=== PATIENT | male | born 1955 | race Caucasian/White ===

== ENCOUNTER → 2016-09-02 | Outpatient (CLI) | payer MEDICARE, MEDICAID ==
[~2016-09-02] MED LIST: ADVAIR; ALBUTEROL; AMIT25TA9 PO; AMOX500C2 PO; ASP81TEC PO; ASPI-586 PO; CATHETER FLUSH 10 ML SYR IV PRN; CRV6.25T PO; CYCL10TA9 PO; DOXA2TAB2 PO; FLUO20CA25 PO; HYDR-3454 PO; HYDR-3874 PO; HYDR1TAB PO; IOHEXOL 350 MG/ML 100 ML (OMNIPAQUE 350) VIAL IV ONE; LISI40TA PO; NAPR500T PO; NS 100 ML (IVPB) BAG IV ONE; OXYGEN; PRAVASTATIN; SERT50TA2 PO; SIMV5TAB6 PO; SPIRIVA; TOPROL; VARE1TAB19 PO; [UNRECOGNIZED DRUG - OTHER]
[2016-09-02 14:15] LABS: BLOOD UREA NITROGEN 10 MG/DL (7-18); BUN/CREATININE RATIO 11; GFR ESTIMATED > 60
--- NOTE | 2016-09-02 17:08 | Diagnostic Imaging Report ---
EXAMINATION: CT scan of the head and internal auditory canals performed without and with intravenous contrast. 18 mL of Omnipaque 350 is administered intravenously. INDICATION: Right ear drainage for one year. FINDINGS: CT IAC: There is soft tissue thickening and bony erosion seen along the posterior aspect of the external auditory canal. The erosion involves the anterior aspect of the temporal bone and some of the adjacent mastoid air cells are opacified. No obvious enhancement on post contrast images is seen. The soft tissue thickening in the external auditory canal on the right side extends to the region of the tympanic membrane but does not extend into the middle ear cavity. No erosions in the scutum or the ossicles. The left mastoid air cells are clear. The middle ear cavity and tympanic membrane as well as the ossicles appear unremarkable. The inner ear structures appear symmetric and internal auditory canals appear symmetric bilaterally. CT BRAIN: There is no intracranial hemorrhage demonstrated on the unenhanced phase. The brain parenchyma demonstrates preserved larose and white matter differentiation. No hydrocephalus. No extra-axial fluid collection seen. No enhancing brain mass is identified. The calvarium appears grossly unremarkable. There is mucosal thickening in the right maxillary sinus and mucosal thickening along the middle and inferior turbinates. IMPRESSION: There is soft tissue thickening in the external auditory canal with erosion of the adjacent anterior aspect of the right temporal bone and partially opacified mastoid air cells. No definite enhancement. 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 Infection or neoplasm is less likely. Tissue diagnosis is recommended. Dictated by: Dictated on workstation # [id number]
== END ==
LOC: RAD 13:33
PROVIDERS: ATTEND Otolaryngology Otolaryngology/Facial Plastic Surgery
DX: H92.11 Otorrhea, right ear (principal); H93.8X1 Other specified disorders of right ear
CPT/HCPCS: 36415; 70482; 82565; 84520

== ENCOUNTER 2017-03-22 21:02 | Emergency (ER) | payer MEDICARE, MEDICAID ==
[~2017-03-22] VITALS: Ht 188 cm; Wt 90.7 kg
[~2017-03-22 21:02] MED LIST changes: -CATHETER FLUSH 10 ML SYR IV PRN; -IOHEXOL 350 MG/ML 100 ML (OMNIPAQUE 350) VIAL IV ONE; -NS 100 ML (IVPB) BAG IV ONE
[2017-03-22] MEDS ORDERED: methylPREDNISolone 125 MG (Solu-MEDROL) VIAL IVP ONE (21:15)
--- NOTE | 2017-03-22 21:28 | ED Respiratory ---
General Chief Complaint: Respiratory Problems Stated Complaint: SOB Nursing Triage Note: C/O progressive soa x 2 weeks. Feels much improved after albuterol tx by EMS. Denies fever/chills. Creamy productive cough reported. Source: patient (LIMITED HISTORIAN), EMS History of Present Illness Time seen by provider: 21:04 Initial Comments PT ARRIVES VIA EMS FROM HOME C/O SHORTNESS OF BREATH AND COUGH FOR "A COUPLE OF WEEKS" PT HAS COPD AND CONTINUES TO SMOKE 1 PPD PT HAS ALBUTEROL INHALER -- LAST USED PT HAS BEEN PRESCRIBED ANORO INHALATION POWDER, BUT QUIT USING IT " A COUPLE OF WEEKS AGO" DUE TO IT CAUSING HIM TO COUGH MORE NO FEVER COUGH IS PRODUCTIVE OF COLORED CREAM-COLORED SPUTUM NO CHEST PAIN NO SWELLING IN LEGS/ FEET OR PAIN IN CALVES NO KNOWN SICK CONTACTS PT WAS SEEN AT [facility] " A COUPLE OF WEEKS AGO" FOR THIS PROBLEM AND WAS PRESCRIBED UNKNOWN MEDICATIONS--PER MED RECONCILIATION--DOXYCYCLINE PRESCRIBED ON 02/26/17 AND PT REPORTS MUCINEX ? WELL. PT STATES NO IMPROVEMENT IN SYMPTOMS EMS HAS GIVEN ALBUTEROL NEB TREATMENT EN ROUTE AND PT STATES HE FEELS MUCH BETTER. O2 SAT 94% ON ROOM AIR AT SCENE FOR EMS PT HAS HAD "5 SHOTS" OF LIQUOR TODAY PCP: [facility] Allergies and Home Medications Allergies Coded Allergies: No Known Drug Allergies (Unverified , 08/09/08) Home Medications Amitriptyline HCl 25 Mg Tablet, (Reported) Carvedilol 12.5 Mg Tablet, (Reported) Clonidine HCl 0.1 Mg Tablet, (Reported) Lisinopril 20 Mg Tablet, (Reported) Montelukast Sodium 10 Mg Tablet, (Reported) Sertraline HCl 100 Mg Tablet, (Reported) Simvastatin 40 Mg Tablet, (Reported) Constitutional: no symptoms reported, No chills, No diaphoresis EENTM: no symptoms reported Respiratory: see HPI, cough, dyspnea on exertion, phlegm, short of breath Cardiovascular: no symptoms reported, No chest pain, No edema, No palpitations , No syncope Gastrointestinal: no symptoms reported Genitourinary: no symptoms reported Musculoskeletal: no symptoms reported Skin: no symptoms reported Psychiatric/Neurological: No Symptoms Reported Hematologic/Lymphatic: No Symptoms Reported Immunological/Allergic: no symptoms reported Past Ilbrsdv-Lsyfds-[place] Hx Patient Social History Alcohol Use: Regular Use (NOW DRINKS "OCCASIONALLY" BUT STATES IN THE PAST HE DRANK 12 PACK TO A CASE OF BEER /DAY PLUS HARD LIQUOR) Recreational Drug Use: No Smoking Status: Current Everyday Smoker (UP TO 1 1/2 PPD) Recent Foreign Travel: No Contact w/Someone Who Travel: No Recent Infectious Disease Expo: No Recent Hopitalizations: Yes Immunizations Up To Date Date of Pneumonia Vaccine: Mar 06, 2014 Date of Influenza Vaccine: Mar 06, 2014 Surgeries History of Surgeries: Yes (CARDIAC CATH-NO INTERVENTION; EXCISION OF SKIN CANCERS FROM EAR; LITHOTRIPSY) Surgeries: Cardiac, Renal Respiratory History of Respiratory Disorde: Yes Respiratory Disorders: COPD Cardiovascular History of Cardiac Disorders: Yes Cardiac Disorders: Coronary Artery Disease, High Cholesterol, Hypertension Neurological History of Neurological Disord: No Reproductive System Hx Reproductive Disorders: No Sexually Transmitted Disease: No Genitourinary History of Genitourinary Disor: Yes Genitourinary Disorders: Benign Prostatic Hyperpl, Kidney Stones Gastrointestinal History of Gastrointestinal Di: No Musculoskeletal History of Musculoskeletal Dis: No Endocrine History of Endocrine Disorders: No HEENT History of HEENT Disorders: No Cancer History of Cancer: Yes (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) Cancer: Skin Did You Recieve Any Treatments: Yes Type of Tx Receive: Surgical Intervention Psychosocial History of Psychiatric Problem: Yes Behavioral Health Disorders: Depression Integumentary History of Skin or Integumenta: No Blood Transfusions History of Blood Disorders: No Family Medical History Significant Family History: No Pertinent Family Hx Physical Exam Vital Signs Vital Sign - Last 12Hours 03/22/17 21:02 Temp 98.7 Pulse 85 Resp 20 B/P (MAP) 142/84 Pulse Ox 95 O2 Delivery Nasal Cannula O2 Flow Rate 2.00 Capillary Refill : Less Than 3 Seconds General Appearance: WD/WN, no apparent distress, other (STRONG ODOR OF ETOH) HEENT: PERRL/EOMI Neck: normal inspection Respiratory: normal breath sounds, no respiratory distress, no accessory muscle use Cardiovascular: normal peripheral pulses, regular rate, rhythm, no edema, no JVD, no murmur Gastrointestinal: normal bowel sounds, non tender Extremities: normal inspection, no pedal edema, no calf tenderness, normal capillary refill Neurologic/Psychiatric: 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, no motor/sensory deficits, alert, normal mood/affect, oriented x 3 Skin: normal color, warm/dry Progress/Results/Core Measures Suspected Sepsis Recent Fever Within 48 Hours: No Infection Criteria Present: Suspected New Infection New/Unexplained Altered Menta: No Sepsis Screen: No Definite Risk Sepsis Diagnosis: SIRS Temperature:98.7 Pulse: 85 Respiratory Rate: 20 Laboratory Tests 03/22/17 21:20: White Blood Count 14.3H Blood Pressure 142 /84 Mean: 103 Laboratory Tests 03/22/17 21:20: Creatinine 0.79, INR Comment 1.0, Platelet Count 398, Total Bilirubin 0.7 Results/Orders Lab Results Laboratory Tests Test 03/22/17 21:20 Range/Units White Blood Count 14.3 H 4.3-11.0 10^3/uL Red Blood Count 5.55 4.35-5.85 10^6/uL Hemoglobin 16.0 13.3-17.7 G/DL Hematocrit 46 40-54 % Mean Corpuscular Volume 83 80-99 FL Mean Corpuscular Hemoglobin 29 25-34 PG Mean Corpuscular Hemoglobin Concent 35 32-36 G/DL Red Cell Distribution Width 14.7 H 10.0-14.5 % Platelet Count 398 130-400 10^3/uL Mean Platelet Volume 9.3 7.4-10.4 FL Neutrophils (%) (Auto) 71 42-75 % Lymphocytes (%) (Auto) 19 12-44 % Monocytes (%) (Auto) 9 0-12 % Eosinophils (%) (Auto) 1 0-10 % Basophils (%) (Auto) 0 0-10 % Neutrophils # (Auto) 10.2 H 1.8-7.8 X 10^3 Lymphocytes # (Auto) 2.7 1.0-4.0 X 10^3 Monocytes # (Auto) 1.4 H 0.0-1.0 X 10^3 Eosinophils # (Auto) 0.1 0.0-0.3 10^3/uL Basophils # (Auto) 0.0 0.0-0.1 10^3/uL Neutrophils % (Manual) 67 % Lymphocytes % (Manual) 26 % Monocytes % (Manual) 5 % Eosinophils % (Manual) 0 % Basophils % (Manual) 1 % Band Neutrophils 1 % Blood Morphology Comment NORMAL Prothrombin Time 13.4 12.2-14.7 SEC INR Comment 1.0 0.8-1.4 Activated Partial Thromboplast Time 23 L 24-35 SEC Sodium Level 135 135-145 MMOL/L Potassium Level 3.7 3.6-5.0 MMOL/L Chloride Level 91 L 98-107 MMOL/L Carbon Dioxide Level 28 21-32 MMOL/L Anion Gap 16 H 5-14 MMOL/L Blood Urea Nitrogen 9 7-18 MG/DL Creatinine 0.79 0.60-1.30 MG/DL Estimat Glomerular Filtration Rate > 60 BUN/Creatinine Ratio 11 Glucose Level 205 H 70-105 MG/DL Calcium Level 9.6 8.5-10.1 MG/DL Magnesium Level 2.1 1.8-2.4 MG/DL Total Bilirubin 0.7 0.1-1.0 MG/DL Aspartate Amino Transf (AST/SGOT) 27 5-34 U/L Alanine Aminotransferase (ALT/SGPT) 26 0-55 U/L Alkaline Phosphatase 106 40-136 U/L Troponin I < 0.30 <0.30 NG/ML B-Type Natriuretic Peptide 17.9 <100.0 PG/ML Total Protein 7.9 6.4-8.2 GM/DL Albumin 4.4 3.2-4.5 GM/DL Micro Results Microbiology 03/22/17 Influenza Types A,B Antigen (MARYANA) - Final, Complete My Orders Orders - PORFIRIO PICKENS DO Saline Lock/Iv-Start (03/22/17 21:13) Ekg Tracing (03/22/17 21:13) O2 (03/22/17 21:13) Monitor-Rhythm Ecg Trace Only (03/22/17 21:13) BNP (03/22/17 21:13) Cbc With Automated Diff (03/22/17 21:13) Comprehensive Metabolic Panel (03/22/17 21:13) Magnesium (03/22/17 21:13) Protime With Inr (03/22/17 21:13) Partial Thromboplastin Time (03/22/17 21:13) Troponin I (03/22/17 21:13) Influenza A And B Antigens (03/22/17 21:13) Chest Pa/Lat (2 View) (03/22/17 21:13) Methylprednisolone Sod Succ (Solu-Medrol (03/22/17 21:15) Manual Differential (03/22/17 21:20) Medications Given in ED Current Medications Medications Dose Ordered Sig/Sandra Route Start Time Stop Time Status Last Admin Dose Admin Methylprednisolone Sodium Succinate 125 mg ONCE ONCE IVP 03/22/17 21:15 03/22/17 21:16 DC 03/22/17 22:00 125 MG Vital Signs/I&O Vital Sign - Last 12Hours 03/22/17 03/22/17 21:02 21:02 Temp 98.7 Pulse 85 Resp 20 B/P (MAP) 142/84 Pulse Ox 95 95 O2 Delivery Nasal Cannula O2 Flow Rate 2.00 2.00 Capillary Refill : Less Than 3 Seconds Blood Pressure Mean: 103 Progress Note : Progress Note UNEVENTFUL ER STAY NO WHEEZING OR DIFFICULTY BREATHING DURING ER STAY O2 SATS REMAINED IN MID TO UPPER 90'S PT ADVISED OF ABNORMAL GLUCOSE LEVEL, AND ABNORMAL FINDING ON CXR, AND EXPLAINED IMPORTANCE OF FOLLOW UP WITH PCP FOR FURTHER EVALUATION OF THESE FINDINGS ECG Initial ECG Impression Time: 21:37 Initial ECG Rate: 88 Initial ECG Rhythm: Normal Sinus Initial ECG Impression: Nonspecific Changes Initial ECG Comparisson: No Previous ECG Available Diagnostic Imaging Comments CXR--NO ACUTE PROCESS, NODULE VS NIPPLE SHADOW ON RIGHT --PER RADIOLOGIST REPORT @ 2220 Reviewed: Reviewed by Me Departure Impression Impression: Primary Impression: COPD EXACERBATION WITH BRONCHITIS Additional Impressions: Smoker Hyperglycemia Abnormality of lung on CXR Disposition: HOME, SELF-CARE Condition: Improved Departure-Patient Inst. Referrals: KRISTINA VILLANUEVA DO (PCP) Primary Care Physician BALDEMAR JC (Family) Primary Care Physician Patient Instructions: Acute Bronchitis, Adult (DC), COPD Including Emphysema ( DC), Hyperglycemia, Adult (DC), Quitting Smoking, Single Pulmonary Nodule, Smoking: Not Just Harmful to Your Lungs and Heart Add. Discharge Instructions: NO SMOKING ROBITUSSIN DM FOR COUGH FOLLOW UP WITH [facility] IN 2-3 DAYS FOR FURTHER CARE--RECHECK FOR THIS PROBLEM, FOLLOW UP ON ABNORMALITY ON CHEST XRAY AND ELEVATED BLOOD GLUCOSE All discharge instructions reviewed with patient and/or family. Voiced understanding. Scripts Benzonatate (Tessalon Perle) 100 Mg Capsule 1-2 TAB PO TID for Cough, #30 CAP Prov: PORFIRIO PICKENS DO 03/22/17 Budesonide (Pulmicort) 1 Mg/2 Ml Ampul.neb 1 MG IH BID, #1 UNIT Prov: PORFIRIO PICKENS DO 03/22/17 Methylprednisolone (Medrol) 4 Mg Tab.ds.pk 4 MG PO UD, #1 PKG Prov: PORFIRIO PICKENS DO 03/22/17 Albuterol Sulfate (Albuterol Sulfate) 2.5 Mg/3 Ml Vial.neb 2.5 MG IH Q4H, #1 EA Prov: PORFIRIO PICKENS DO 03/22/17 Cefdinir (Cefdinir) 300 Mg Capsule 300 MG PO BID for FOR INFECTION, #20 CAP Prov: PORFIRIO PICKENS DO 03/22/17 PORFIRIO PICKENS DO Mar 22, 2017 21:27
[2017-03-22 21:29] LABS: BASOPHILS % (AUTO) 0 % (0-10); EOSINOPHILS # (AUTO) 0.1 10^3/uL (0.0-0.3); EOSINOPHILS % (AUTO) 1 % (0-10); LYMPHOCYTES # (AUTO) 2.7 X 10^3 (1.0-4.0); LYMPHOCYTES % (AUTO) 19 % (12-44); MEAN CORPUSCULAR HEMOGLOBIN 29 PG (25-34); MEAN CORPUSCULAR HGB CONC 35 G/DL (32-36); MEAN CORPUSCULAR VOLUME 83 FL (80-99); MEAN PLATELET VOLUME 9.3 FL (7.4-10.4); MONOCYTES # (AUTO) 1.4 X 10^3 (0.0-1.0); MONOCYTES % (AUTO) 9 % (0-12); NEUTROPHILS # (AUTO) 10.2 X 10^3 (1.8-7.8); NEUTROPHILS % (AUTO) 71 % (42-75); PLATELET COUNT 398 10^3/uL (130-400); RED BLOOD COUNT 5.55 10^6/uL (4.35-5.85); RED CELL DISTRIBUTION WIDTH 14.7 % (10.0-14.5); WHITE BLOOD COUNT 14.3 10^3/uL (4.3-11.0)
[2017-03-22] MEDS ORDERED: CLON0.1T (21:31)
[2017-03-22] MEDS ORDERED: MONT10TA24 (21:31)
[2017-03-22] MEDS ORDERED: LISI-552 (21:31)
[2017-03-22] MEDS ORDERED: SERT100T8 (21:31)
[2017-03-22] MEDS ORDERED: SIMV40TA4 (21:31)
[2017-03-22] MEDS ORDERED: AMIT25TA9 (21:31)
[2017-03-22] MEDS ORDERED: CARV12.53 (21:31)
[2017-03-22 21:43] LABS: BAND NEUTROPHILS 1 %; BASOPHILS % (MANUAL) 1 %; EOSINOPHILS % (MANUAL) 0 %; LYMPHOCYTES % (MANUAL) 26 %; NEUTROPHILS % (MANUAL) 67 %
[2017-03-22 21:45] LABS: PROTHROMBIN TIME PATIENT 13.4 SEC (12.2-14.7)
[2017-03-22 21:49] LABS: ALANINE AMINOTRANSFERASE 26 U/L (0-55); ALBUMIN 4.4 GM/DL (3.2-4.5); ANION GAP 16 MMOL/L (5-14); ASPARTATE AMINO TRANSFERASE 27 U/L (5-34); BILIRUBIN,TOTAL 0.7 MG/DL (0.1-1.0); BLOOD UREA NITROGEN 9 MG/DL (7-18); BUN/CREATININE RATIO 11; CALCIUM 9.6 MG/DL (8.5-10.1); CARBON DIOXIDE 28 MMOL/L (21-32); CHLORIDE 91 MMOL/L (98-107); CREATININE SERUM 0.79 MG/DL (0.60-1.30); GFR ESTIMATED > 60; GLUCOSE 205 MG/DL (70-105); MAGNESIUM 2.1 MG/DL (1.8-2.4); POTASSIUM 3.7 MMOL/L (3.6-5.0); SODIUM 135 MMOL/L (135-145); TOTAL PROTEIN 7.9 GM/DL (6.4-8.2)
[2017-03-22 21:55] LABS: TROPONIN I < 0.30 NG/ML (<0.30)
--- NOTE | 2017-03-22 22:03 | Diagnostic Imaging Report ---
INDICATION: Shortness of air x 2 weeks. COMPARISON: 12/21/2014. EXAMINATION: Frontal and lateral views of the chest were obtained. FINDINGS: Normal heart size and pulmonary vascularity. Evaluation with lung windows demonstrates subcentimeter micronodular opacity projecting over the lateral right mid to lower lung field. Otherwise, the lungs are clear. There are no signs of infiltrate, pleural effusions or pneumothoraces. The visualized osseous structures show no acute abnormalities. IMPRESSION: 1. No acute process. No signs of infiltrates, effusions or pneumothoraces. 2. Probable nipple shadow on the right. Repeating the exam with nipple markers is recommended to exclude true soft tissue micronodule. Dictated by: Dictated on workstation # [id number]
[2017-03-22] MEDS ORDERED: RX-ALBUTEROL NEB 2.5 MG/3 ML PACK #5 IH STA (22:22)
[2017-03-22] MEDS ORDERED: cefTRIAXone 1 GM (ROCEPHIN) VIAL ONE (22:22)
[2017-03-22] MEDS ORDERED: NS (IVPB) 50 ML ONE (22:22)
[2017-03-22] MEDS ORDERED: RX-ALBUTEROL NEB 2.5 MG/3 ML PACK #5 IH ONE (22:22)
[2017-03-22] MEDS ORDERED: BENZONATATE 100 MG (TESSALON) CAPSULE PO ONE (22:23)
[2017-03-22] MEDS ORDERED: BENZ-13 PO (22:30)
[2017-03-22] MEDS ORDERED: BENZONATATE 100 MG (TESSALON) CAPSULE PO SCH (22:30)
[2017-03-22] MEDS ORDERED: CEFD300C3 PO (22:30)
[2017-03-22] MEDS ORDERED: ALBU2.5V4 IH (22:30)
[2017-03-22] MEDS ORDERED: METH4TAB PO (22:30)
[2017-03-22] MEDS ORDERED: cefTRIAXone INJECTION 1,000 MG in NS (IVPB) 50 ML IV ONE (22:30)
[2017-03-22] MEDS ORDERED: BUDE1AMP IH (22:30)
[2017-03-22 22:46] VITALS: BP 154/106
== END 2017-03-22 22:46 | disposition home or self-care (01) ==
LOC: EDUNIT# 21:02 → ER 21:03
DX: J44.1 Chronic obstructive pulmonary disease with (acute) exacerbation (principal); R73.9 Hyperglycemia, unspecified; R91.8 Other nonspecific abnormal finding of lung field; I25.10 Atherosclerotic heart disease of native coronary artery without angina pectoris; E78.00 Pure hypercholesterolemia, unspecified; I10 Essential (primary) hypertension; N40.0 Benign prostatic hyperplasia without lower urinary tract symptoms; F32.9 Major depressive disorder, single episode, unspecified; F17.210 Nicotine dependence, cigarettes, uncomplicated; Z85.828 Personal history of other malignant neoplasm of skin; Z87.442 Personal history of urinary calculi
CPT/HCPCS: 36415; 71020; 80053; 83735; 83880; 84484; 85007; 85027; 85610; 85730; 87070; 87077; 87205; 87804; 93005; 93041

== ENCOUNTER → 2017-04-15 | Outpatient (CLI) | payer MEDICARE, MEDICAID ==
[~2017-04-15] MED LIST changes: +ALBU2.5V4 IH; +AMIT25TA9; +BENZ-13 PO; +BUDE1AMP IH; +CARV12.53; +CEFD300C3 PO; +CLON0.1T; +IOHEXOL 350 MG/ML 100 ML (OMNIPAQUE 350) VIAL IV ONE; +LISI-552; +METH4TAB PO; +MONT10TA24; +NAPR-1071 PO; -NAPR500T PO; +NS 100 ML (IVPB) BAG IV ONE; +SERT100T8; +SIMV40TA4
[2017-04-15 09:37] LABS: BLOOD UREA NITROGEN 5 MG/DL (7-18); BUN/CREATININE RATIO 6; CREATININE SERUM 0.85 MG/DL (0.60-1.30); GFR ESTIMATED > 60
--- NOTE | 2017-04-15 12:15 | Diagnostic Imaging Report ---
PROCEDURE: CT chest with contrast only. TECHNIQUE: Multiple contiguous axial images were obtained through the chest after administration of intravenous contrast. INDICATION: COPD. Shortness of breath. Chronic bronchitis. 75 mL of Omnipaque 350 is administered intravenously. FINDINGS: Tkds-hs-mkmhbpek emphysema changes are seen mostly in the upper and mid lung zones. No significant consolidation, mass, or suspicious nodule. There is a 6 mm calcified granuloma in the left lower lobe. The mediastinum demonstrates no mass or significant lymphadenopathy. No hilar or axillary lymphadenopathy of significance seen. The thoracic aorta is at the upper limits of normal in caliber at 3.5 cm in the mid ascending aorta. The heart size is normal. No pericardial or pleural effusion. Sections of the upper abdomen demonstrate a left adrenal mass measuring 3.8 cm in size. It has internal density about fluid Hounsfield units range which is in favor of a lipid-rich adenoma. 1.7 cm similar low-density nodule in the right adrenal gland is seen. No prior studies are available for comparison. The osseous structures demonstrate degenerative changes. There are Schmorl's nodes depressing focally endplates in the mid and lower thoracic spine levels, which appear chronic. IMPRESSION: 1. Ctfs-aq-[id number] emphysema changes. 2. Adrenal nodules, particularly large on the left side measuring 3.8 cm with internal density in favor of a lipid-rich adenoma. The large size, however, is atypical. Evaluation with MRI of the abdomen without and with intravenous contrast would be helpful. Dictated by: Dictated on workstation # [id number]
== END ==
LOC: RAD 09:03
PROVIDERS: ATTEND Nurse Practitioner Family
DX: J44.9 Chronic obstructive pulmonary disease, unspecified (principal); E27.9 Disorder of adrenal gland, unspecified; Z72.0 Tobacco use
CPT/HCPCS: 36415; 71260; 82565; 84520

== ENCOUNTER → 2017-07-08 | Outpatient (CLI) | payer MEDICARE, MEDICAID ==
[~2017-07-08] MED LIST changes: +GADOBUTROL 10 MMOL/10 ML (GADAVIST) VIAL IV ONE; +HYDR-3870 PO; -HYDR-3874 PO; -IOHEXOL 350 MG/ML 100 ML (OMNIPAQUE 350) VIAL IV ONE; -NS 100 ML (IVPB) BAG IV ONE
--- NOTE | 2017-07-08 12:51 | Diagnostic Imaging Report ---
PROCEDURE: MR imaging abdomen with and without contrast. TECHNIQUE: Multiplanar, multisequence MR imaging of the abdomen was performed with and without contrast. INDICATION: Adrenal nodules. There are no previous MRI abdomen examinations available for comparison. FINDINGS: The CT chest exam performed on 04/15/17 noted a 3.8 cm left adrenal mass and a 1.7 cm low-density nodule arising from the right adrenal gland. The larger mass involving the left adrenal gland was felt to be most likely a benign process as it appeared to be lipid rich. On this exam, both adrenal masses show similar signal characteristics. Specifically, there is signal dropout on the out of phase sequence for each adrenal nodule. I do suspect that these findings are related to adrenal adenomas. There is slight enhancement of both masses on the postcontrast series. The liver and spleen, where visualized, are unremarkable. There are small cysts arising from both kidneys. The largest of these cysts is along the lateral aspect of the right kidney measures 1.5 cm in size. The other cyst measured 1 cm or less. These cysts have a generally benign appearance. There is no sign of a solid renal mass or hydronephrosis. There is no evidence for an aneurysm of the aorta and the inferior vena cava is unremarkable. The gallbladder is within normal limits as well. The stomach is not well distended and consequently difficult to assess. IMPRESSION: 1. The adrenal nodules seen on CT exam are felt to represent adrenal adenomas, a benign condition. 2. There is no acute abnormality of the visualized abdomen. 3. There are small bilateral renal cysts. Dictated by: Dictated on workstation # [id number]
== END ==
LOC: RAD 09:30
PROVIDERS: ATTEND Nurse Practitioner Community Health
DX: E27.9 Disorder of adrenal gland, unspecified (principal); N28.1 Cyst of kidney, acquired
CPT/HCPCS: 74183

== ENCOUNTER 2017-08-01 13:06 | Emergency (ER) | payer MEDICARE, MEDICAID ==
[~2017-08-01] VITALS: Ht 188 cm; Wt 104.4 kg
[~2017-08-01 13:06] MED LIST changes: -GADOBUTROL 10 MMOL/10 ML (GADAVIST) VIAL IV ONE
--- NOTE | 2017-08-01 13:30 | ED General ---
General Stated Complaint: POSS INFECTION LEFT LEG Source of Information: Patient Exam Limitations: No Limitations History of Present Illness Date Seen by Provider: Aug 01, 2017 Time Seen by Provider: 13:26 Initial Comments The patient is a 61-year-old white male who appears to be intoxicated and certainly exhibits slurred speech. He is here with pain and modest swelling in his left leg. He reports that this is actually a problem of perhaps several years at intervals. His previous PCP found this to be rather mysterious. He does not have any open sores that he reports. He is unaware of fever or chills. Timing/Duration: 3-4 Days Allergies and Home Medications Allergies Coded Allergies: No Known Drug Allergies (Unverified , 08/09/08) Home Medications Albuterol Sulfate 2.5 Mg/3 Ml Vial.neb, 2.5 MG IH Q4H Prescribed by: PORFIRIO PICKENS on 03/22/172229 Benzonatate 100 Mg Capsule, 1-2 TAB PO TID Prescribed by: PORFIRIO PICKENS on 03/22/172229 Budesonide 1 Mg/2 Ml Ampul.neb, 1 MG IH BID Prescribed by: PORFIRIO PICKENS on 03/22/172229 Cefdinir 300 Mg Capsule, 300 MG PO BID Prescribed by: PORFIRIO PICKENS on 03/22/172229 Methylprednisolone 4 Mg Tab.ds.pk, 4 MG PO UD Prescribed by: PORFIRIO PICKENS on 03/22/172229 Patient Home Medication List Home Medication List Reviewed: Yes Review of Systems Constitutional: see HPI EENTM: no symptoms reported Respiratory: no symptoms reported Cardiovascular: no symptoms reported Gastrointestinal: no symptoms reported Genitourinary: frequency, hesitancy Skin: see HPI Psychiatric/Neurological: No Symptoms Reported Hematologic/Lymphatic: No Symptoms Reported Immunological/Allergic: no symptoms reported Past Riaqegn-Kqfcbg-Bcglmk Hx Patient Social History Recent Foreign Travel: No Contact w/Someone Who Travel: No Recent Hopitalizations: Yes Immunizations Up To Date Date of Pneumonia Vaccine: Mar 06, 2014 Date of Influenza Vaccine: Mar 06, 2014 Past Medical History Surgeries: Yes Cardiac, Renal Respiratory: Yes COPD Cardiac: Yes Coronary Artery Disease, High Cholesterol, Hypertension Neurological: No Reproductive Disorders: No Sexually Transmitted Disease: No Genitourinary: Yes Benign Prostatic Hyperpl, Kidney Stones Gastrointestinal: No Musculoskeletal: No Endocrine: No HEENT: No Cancer: Yes (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) Skin Did You Recieve Any Treatments: Yes What Type of Treatment Did You: Surgical Intervention Psychosocial: Yes Depression Integumentary: No Blood Disorders: No Family Medical History No Pertinent Family Hx Physical Exam Vital Signs Vital Signs - First Documented 08/01/17 13:15 Temp 97.2 Pulse 103 Resp 18 B/P (MAP) 148/124 (132) Pulse Ox 94 O2 Delivery Room Air Capillary Refill : General Appearance: Mild Distress Eyes: Bilateral Eye Normal Inspection HEENT: Normal ENT Inspection Neck: Normal Inspection Cardiovascular: Regular Rate, Rhythm, No Edema, No Gallop, No JVD, No Murmur Gastrointestinal: Normal Bowel Sounds, No Organomegaly, No Pulsatile Mass, Non Tender, Soft Back: Normal Inspection, No CVA Tenderness, No Vertebral Tenderness Neurologic/Psychiatric: Alert, No Motor/Sensory Deficits, Normal Mood/Affect, entry level business analyst II-XII Norm as Tested Comments There is minimal pinkness to the left calf and ankle. There is a papillary roughness to touch. He reports pain to light touch. There is no palpable warmth. There appears to be 1+ edema as compared to the right leg. Progress/Results/Core Measures Suspected Sepsis SIRS Temperature: Pulse: Respiratory Rate: Laboratory Tests 08/01/17 13:40: White Blood Count 8.9 Blood Pressure / Mean: Laboratory Tests 08/01/17 13:40: Creatinine 0.79, Platelet Count 367, Total Bilirubin 0.3 Results/Orders Lab Results Laboratory Tests Test 08/01/17 13:40 08/01/17 14:33 Range/Units White Blood Count 8.9 4.3-11.0 10^3/uL Red Blood Count 5.16 4.35-5.85 10^6/uL Hemoglobin 15.5 13.3-17.7 G/DL Hematocrit 46 40-54 % Mean Corpuscular Volume 88 80-99 FL Mean Corpuscular Hemoglobin 30 25-34 PG Mean Corpuscular Hemoglobin Concent 34 32-36 G/DL Red Cell Distribution Width 14.8 H 10.0-14.5 % Platelet Count 367 130-400 10^3/uL Mean Platelet Volume 9.2 7.4-10.4 FL Neutrophils (%) (Auto) 49 42-75 % Lymphocytes (%) (Auto) 36 12-44 % Monocytes (%) (Auto) 11 0-12 % Eosinophils (%) (Auto) 3 0-10 % Basophils (%) (Auto) 0 0-10 % Neutrophils # (Auto) 4.4 1.8-7.8 X 10^3 Lymphocytes # (Auto) 3.3 1.0-4.0 X 10^3 Monocytes # (Auto) 1.0 0.0-1.0 X 10^3 Eosinophils # (Auto) 0.3 0.0-0.3 10^3/uL Basophils # (Auto) 0.0 0.0-0.1 10^3/uL Sodium Level 143 135-145 MMOL/L Potassium Level 4.1 3.6-5.0 MMOL/L Chloride Level 106 98-107 MMOL/L Carbon Dioxide Level 28 21-32 MMOL/L Anion Gap 9 5-14 MMOL/L Blood Urea Nitrogen 7 7-18 MG/DL Creatinine 0.79 0.60-1.30 MG/DL Estimat Glomerular Filtration Rate > 60 BUN/Creatinine Ratio 9 Glucose Level 163 H 70-105 MG/DL Calcium Level 9.0 8.5-10.1 MG/DL Total Bilirubin 0.3 0.1-1.0 MG/DL Aspartate Amino Transf (AST/SGOT) 27 5-34 U/L Alanine Aminotransferase (ALT/SGPT) 29 0-55 U/L Alkaline Phosphatase 106 40-136 U/L Total Protein 7.0 6.4-8.2 GM/DL Albumin 4.4 3.2-4.5 GM/DL Serum Alcohol 189 H <10 MG/DL My Orders Orders - JOSEY INFANTE MD Alcohol (08/01/17 13:30) Cbc With Automated Diff (08/01/17 13:30) Comprehensive Metabolic Panel (08/01/17 13:30) Drug Screen Stat (Urine) (08/01/17 13:30) Ua Culture If Indicated (08/01/17 13:30) Us Venous Lower Ext Lt (08/01/17 13:30) Vital Signs/I&O 08/01/17 13:15 Temp 97.2 Pulse 103 Resp 18 B/P (MAP) 148/124 (132) Pulse Ox 94 O2 Delivery Room Air Capillary Refill : Departure Impression Primary Impression: cellulitis left lower extremity Disposition: 01 HOME, SELF-CARE Condition: Stable/Unchanged Departure-Patient Inst. Decision time for Depature: 14:53 Referrals: [facility] (PCP/Family) Primary Care Physician Patient Instructions: Dependent Edema (DC) Add. Discharge Instructions: We are going to treat the redness and tenderness with antibiotics on an empiric basis. I believe by the edema and skin changes that you have mild venous stasis dermatitis. It would be useful to get some support hose over the calf and put them on first thing in the morning to control this. Scripts Cephalexin (Keflex) 500 Mg Capsule 500 MG PO 3 times a day, #21 CAP Prov: JOSEY INFANTE MD 08/01/17 JOSEY INFANTE MD Aug 01, 2017 13:30
[2017-08-01 13:56] LABS: BASOPHILS % (AUTO) 0 % (0-10); EOSINOPHILS # (AUTO) 0.3 10^3/uL (0.0-0.3); EOSINOPHILS % (AUTO) 3 % (0-10); HEMATOCRIT 46 % (40-54); HEMOGLOBIN 15.5 G/DL (13.3-17.7); LYMPHOCYTES # (AUTO) 3.3 X 10^3 (1.0-4.0); LYMPHOCYTES % (AUTO) 36 % (12-44); MEAN CORPUSCULAR HEMOGLOBIN 30 PG (25-34); MEAN CORPUSCULAR HGB CONC 34 G/DL (32-36); MEAN CORPUSCULAR VOLUME 88 FL (80-99); MEAN PLATELET VOLUME 9.2 FL (7.4-10.4); MONOCYTES % (AUTO) 11 % (0-12); NEUTROPHILS # (AUTO) 4.4 X 10^3 (1.8-7.8); NEUTROPHILS % (AUTO) 49 % (42-75); PLATELET COUNT 367 10^3/uL (130-400); RED BLOOD COUNT 5.16 10^6/uL (4.35-5.85); RED CELL DISTRIBUTION WIDTH 14.8 % (10.0-14.5); WHITE BLOOD COUNT 8.9 10^3/uL (4.3-11.0)
[2017-08-01 14:25] LABS: ALANINE AMINOTRANSFERASE 29 U/L (0-55); ALBUMIN 4.4 GM/DL (3.2-4.5); ALKALINE PHOSPHATASE 106 U/L (40-136); BILIRUBIN,TOTAL 0.3 MG/DL (0.1-1.0); BUN/CREATININE RATIO 9; CARBON DIOXIDE 28 MMOL/L (21-32); CHLORIDE 106 MMOL/L (98-107); CREATININE SERUM 0.79 MG/DL (0.60-1.30); GFR ESTIMATED > 60; GLUCOSE 163 MG/DL (70-105); POTASSIUM 4.1 MMOL/L (3.6-5.0); SODIUM 143 MMOL/L (135-145)
--- NOTE | 2017-08-01 14:36 | Diagnostic Imaging Report ---
PROCEDURE: US left lower extremity venous. TECHNIQUE: Multiple real-time grayscale images were obtained over the left lower extremity in various projections. Additional duplex Doppler and color Doppler images were also obtained. INDICATION: Left leg pain and swelling. COMPARISON: 12/10/2007 FINDINGS: The left common femoral vein, femoral vein, deep femoral vein, and popliteal vein are normal in appearance. These vessels show normal compressibility, color flow and doppler augmentation. The visualized deep calf veins demonstrate no distinct intraluminal thrombus. IMPRESSION: 1. No sonographic evidence of deep venous thrombosis in the left lower extremity. Dictated by: Dictated on workstation # [id number]
[2017-08-01 14:45] LABS: BILIRUBIN,URINE NEGATIVE (NEGATIVE); CLARITY,URINE CLEAR; COLOR,URINE YELLOW; GLUCOSE, URINE (UA) NEGATIVE (NEGATIVE); KETONES,URINE NEGATIVE (NEGATIVE); LEUKOCYTE ESTERASE ,URINE NEGATIVE (NEGATIVE); NITRITE,URINE NEGATIVE (NEGATIVE); PH,URINE 7 (5-9); PROTEIN,URINE NEGATIVE (NEGATIVE); UROBILINOGEN,URINE NORMAL (NORMAL)
[2017-08-01] MEDS ORDERED: CEPH-507 PO (14:56)
[2017-08-01 14:57] LABS: AMPHETAMINE SCREEN, URINE NEGATIVE (NEGATIVE); BARBITURATE SCREEN URINE NEGATIVE (NEGATIVE); BENZODIAZEPINES SCREEN URINE NEGATIVE (NEGATIVE); CANNABINOID SCREEN, URINE NEGATIVE (NEGATIVE); COCAINE SCREEN URINE NEGATIVE (NEGATIVE); METHADONE STAT NEGATIVE (NEGATIVE); METHAMPHETAMINE SCREEN URINE S NEGATIVE (NEGATIVE); OPIATE SCREEN URINE NEGATIVE (NEGATIVE); OXYCODONE STAT NEGATIVE (NEGATIVE); PROPOXYPHENE STAT NEGATIVE (NEGATIVE); TRICYCLIC ANTIDEPRESSANTS SCRE POSITIVE (NEGATIVE)
[2017-08-01 15:01] VITALS: BP 142/101
[2017-08-01 15:12] LABS: BACTERIA,URINE NEGATIVE /HPF
== END 2017-08-01 15:01 | disposition home or self-care (01) ==
LOC: EDUNIT# 13:06 → ER 13:07
DX: L03.116 Cellulitis of left lower limb (principal); F32.9 Major depressive disorder, single episode, unspecified; N40.0 Benign prostatic hyperplasia without lower urinary tract symptoms; I25.10 Atherosclerotic heart disease of native coronary artery without angina pectoris; E78.00 Pure hypercholesterolemia, unspecified; J44.9 Chronic obstructive pulmonary disease, unspecified; I10 Essential (primary) hypertension; Z87.442 Personal history of urinary calculi; Z85.828 Personal history of other malignant neoplasm of skin
CPT/HCPCS: 36415; 80053; 80306; 80320; 81000; 85025

== ENCOUNTER 2018-03-16 05:36 | Outpatient (CLI) | payer MEDICARE, MEDICAID ==
[~2018-03-16] VITALS: Ht 188 cm; Wt 104.4 kg
[~2018-03-16 05:36] MED LIST changes: -BUPR150T14 PO; -IOHEXOL 350 MG/ML 100 ML (OMNIPAQUE 350) VIAL IV ONE; -NS 250 ML (IVPB) BAG IV ONE; -RECEIVED CONTRAST (Hold Metformin) IV SCH; -TIZA4TAB3 PO; -UMEC1BLS IH
[2018-03-16] MEDS ORDERED: DOXA2TAB2 PO (13:35)
[2018-03-16] MEDS ORDERED: UMEC1BLS IH (13:35)
[2018-03-16] MEDS ORDERED: BUPR150T14 PO (13:35)
[2018-03-16] MEDS ORDERED: ASPI-586 PO (13:35)
[2018-03-16] MEDS ORDERED: TIZA4TAB3 PO (13:35)
[2018-03-16] MEDS ORDERED: LISI40TA PO (13:35)
== END 2018-03-16 13:39 | disposition home or self-care (01) ==
LOC: PREOP 05:36
PROVIDERS: ATTEND Surgery
DX: Z01.818 Encounter for other preprocedural examination (principal)

== ENCOUNTER → 2018-03-16 | Outpatient (CLI) | payer MEDICARE, MEDICAID ==
[~2018-03-16] MED LIST changes: -AMIT25TA9; -BENZ-13 PO; +BENZ100C18 PO; +BUPR150T14 PO; -CARV12.53; +CARV12.53 PO; +CEPH-507 PO; -CLON0.1T; +CLON0.1T PO; +IOHEXOL 350 MG/ML 100 ML (OMNIPAQUE 350) VIAL IV ONE; -MONT10TA24; +MONT10TA24 PO; +NS 250 ML (IVPB) BAG IV ONE; +RECEIVED CONTRAST (Hold Metformin) IV SCH; -SIMV40TA4; +SIMV40TA4 PO; +TIZA4TAB3 PO; +UMEC1BLS IH
[2018-03-16 12:06] LABS: BUN/CREATININE RATIO 9; CREATININE SERUM 0.98 MG/DL (0.60-1.30); GFR ESTIMATED > 60
--- NOTE | 2018-03-16 18:18 | Diagnostic Imaging Report ---
PROCEDURE: CT chest with contrast only. TECHNIQUE: Multiple contiguous axial images were obtained through the chest after administration of intravenous contrast. INDICATION: Chronic bronchitis, emphysema. FINDINGS: The previous CT chest exam of 04/15/2017 noted riiq-zh-uulefqbq emphysematous changes involving both lungs. Those findings are again evident and no different. There is still no sign of a parenchymal lung mass. There is no evidence for failure, pneumonia, or for pleural effusion either. The heart size is within normal limits. The pulmonary arteries were not well opacified and consequently difficult to assess for pulmonary embolus. There is no obvious pulmonary embolus evident. The aorta is not abnormally dilated and there is no sign of dissection. There is no mediastinal or hilar adenopathy. The thyroid gland is generally unremarkable. The sections through the upper abdomen again show the 3.8 cm low-density mass associated with the left adrenal gland. I do suspect that this is a benign process such as an adrenal adenoma. The 1.8 cm nodule arising from the right adrenal gland is essentially no different. The liver, spleen, pancreas, aorta and inferior vena cava, and kidneys are unremarkable for an acute abnormality. The spleen does seem quite small. The bone windows show no sign of an acute fracture. The long-standing compression deformities of the thoracic spine noted on the prior study are again visualized and no different. IMPRESSION: 1. There are emphysematous changes involving both lungs but there is no evidence for an acute cardiopulmonary abnormality. When compared to the prior study, there has been no significant change. 2. The adrenal nodules noted on the prior exam appear stable. Most likely, these nodules are benign. 3. There are long-standing compression deformities of several thoracic vertebrae. Dictated by: Dictated on workstation # [id number]
== END ==
LOC: RAD 11:41
PROVIDERS: ATTEND Nurse Practitioner Family
DX: J42 Unspecified chronic bronchitis (principal); M43.8X4 Other specified deforming dorsopathies, thoracic region; E27.8 Other specified disorders of adrenal gland; J43.9 Emphysema, unspecified; Z72.0 Tobacco use
CPT/HCPCS: 36415; 71260; 82565; 84520

== ENCOUNTER 2018-03-23 07:53 | Day surgery (SDC) | payer MEDICARE, MEDICAID ==
[~2018-03-23] VITALS: Ht 188 cm; Wt 104.4 kg
[~2018-03-23 07:53] MED LIST changes: +BUPR150T14 PO; +TIZA4TAB3 PO; +UMEC1BLS IH
[2018-03-23] MEDS ORDERED: NS IV 500 ML 500 ML ONE (08:01)
[2018-03-23 08:10] VITALS: BP 146/94
[2018-03-23] MEDS ORDERED: NS IV 500 ML 500 ML IV PRN (08:14)
[2018-03-23] MEDS ORDERED: MIDAZOLAM 2 MG/2 ML (VERSED) VIAL IVP ONE (08:15)
[2018-03-23] MEDS ORDERED: fentaNYL INJECTION 100 MCG/2 ML AMP IVP ONE (08:15)
--- NOTE | 2018-03-23 09:54 | History & Physicial ---
History of Present Illness History of Present Illness Reason for visit/HPI to undergo screening colonoscopy. Family history of colon cancer in his older brother Date of Admission 03/23/18 Date Seen by a Provider: Mar 23, 2018 Time Seen by a Provider: 09:53 I consulted on this patient on 03/23/18 09:53 Attending Physician Kayla Ruiz MD Admitting Physician [place] Consult Allergies and Home Medications Allergies Coded Allergies: No Known Drug Allergies (Unverified , 08/09/08) Home Medications Amitriptyline HCl 25 Mg Tablet, 25 MG PO HS, (Reported) Aspirin 81 Mg Tablet.dr, 81 MG PO DAILY, (Reported) Bupropion HCl 150 Mg Tablet.er, 150 MG PO BID, (Reported) Carvedilol 12.5 Mg Tablet, 12.5 MG PO BID, (Reported) Clonidine HCl 0.1 Mg Tablet, 0.1 MG PO BID, (Reported) Doxazosin Mesylate 2 Mg Tablet, 0.5 MG PO DAILY, (Reported) Lisinopril 40 Mg Tablet, 40 MG PO DAILY, (Reported) Montelukast Sodium 10 Mg Tablet, 10 MG PO HS, (Reported) Simvastatin 40 Mg Tablet, 40 MG PO HS, (Reported) Tizanidine HCl 4 Mg Tablet, 4 MG PO HS, (Reported) Umeclidinium Brm/Vilanterol Tr 1 Each Blst.w.dev, 1 EACH IH DAILY, (Reported) Patient Home Medication List Home Medication List Reviewed: Yes Past Qusvsfb-Ditlgu-Uaouty Hx Patient Social History Marrital Status: Employed/Student: retired Alcohol Use: Denies Use Number of Drinks Today: FF Alcohol Beverage of Choice: Vodka Recreational Drug Use: No (SMOKES 1PPD) Smoking Status: Current Everyday Smoker Type Used: Cigarettes Recent Foreign Travel: No Contact w/other who traveled: No Recent Hopitalizations: No Immunizations Up To Date Date of Pneumonia Vaccine: Mar 16, 2015 Date of Influenza Vaccine: Feb 16, 2018 Seasonal Allergies Seasonal Allergies: No Surgeries Yes Renal Respiratory Yes Cardiovascular Yes Coronary Artery Disease, High Cholesterol, Hypertension Neurological No Reproductive System Hx Reproductive Disorders: No Sexually Transmitted Disease: No HIV/AIDS: No Genitourinary Yes Benign Prostatic Hyperpl, Kidney Stones Gastrointestinal No Musculoskeletal No Endocrine History of Endocrine Disorders: No HEENT History of HEENT Disorders: No Cancer Yes (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) Skin Did You Recieve Any Treatments: Yes Type of Treatment: Surgical Intervention Psychosocial History of Psychiatric Problem: Yes Behavioral Health Disorders: Depression Integumentary History of Skin or Integumenta: No Blood Transfusions History of Blood Disorders: No Adverse Reaction to a Blood Tr: No (N/A) Family Medical History Significant Family History: No Pertinent Family Hx Review of Systems Constitutional: no symptoms reported EENTM: no symptoms reported Respiratory: cough Cardiovascular: no symptoms reported Gastrointestinal: no symptoms reported Genitourinary: no symptoms reported Musculoskeletal: no symptoms reported Skin: no symptoms reported Psychiatric/Neurological: No Symptoms Reported Physical Exam Vital Signs Vital Signs - First Documented 03/23/18 08:10 Temp 97.6 Pulse 90 Resp 20 B/P (MAP) 146/94 (111) Pulse Ox 97 O2 Delivery Room Air Capillary Refill : Height, Weight, BMI Height: 6'2.00" Weight: 230lbs. 2.0oz. 104.303994lv; 29.6 BMI Method:Stated General Appearance: No Apparent Distress Neck: Normal Inspection Respiratory: Lungs Clear Cardiovascular: Regular Rate, Rhythm Gastrointestinal: Non Tender, Soft Rectal: Deferred Extremity: Normal Inspection Neurologic/Psychiatric: Alert, Oriented x3 Skin: Warm/Dry Assessment/Plan Assessment and Plan gentleman with a family history of colon cancer in his brother. For screening colonoscopy. Discussed in detail Admission Diagnosis Admission Status: Other (Outpt Proc) KAYLA RUIZ MD Mar 23, 2018 09:54
--- NOTE | 2018-03-23 09:55 | Conscious Sedation/ASA ---
Conscious Sedation Pre-Proced Time 09:54 ASA Score 2 For ASA 3 and 4: Consider anesthesia and medical clearance. Also, for patients with a history of failed moderate sedation consider anesthesia. Airway Lungs Heart ASA score ASA 1: a normal healthy patient ASA 2: a patient with a mild systemic disease (mid diabetes, controlled hypertension, obesity ASA 3: a patient with a severe systemic disease that limits activity (angina , COPD, prior Myocardial infarction) ASA 4: a patient with an incapacitating disease that is a constant threat to life (CHF, renal failure) ASA 5: a moribund patient not expected to survive 24 hrs. (ruptured aneurysm) ASA 6: a declared brain patient whose organs are being harvested. For emergent operations, add the letter E after the classification Mallampati Classification Grade 2 Sedation Plan Discussed options with patient/fam The patient is an appropriate candidate to undergo the planned procedure, sedation, and anesthesia. The patient immediately re-assessed prior to indication. KAYLA RUIZ MD Mar 23, 2018 09:55
[2018-03-23] MEDS ORDERED: fentaNYL INJECTION 100 MCG/2 ML AMP ONE (10:13)
[2018-03-23] MEDS ORDERED: MIDAZOLAM 2 MG/2 ML (VERSED) VIAL ONE ×6 (10:13→10:36)
--- NOTE | 2018-03-23 10:49 | Endo Procedure Record ---
Endo Procedure Report Date of Procedure Last Colonoscopy: Yes (2007) Mar 23, 2018 Surgeon (s) KAYLA RUIZ MD Post Procedure/Op Diagnosis severe sigmoid diverticulosis 3 mm pedunculated polyp at the distal sigmoid colon Procedure Performed colonoscopy to cecum snare polypectomy Description of Procedure Anesthesia Type: Conscious Sedation Specimen(s) collected/removed sigmoid polyp Description of the Procedure Indication for the procedure: This gentleman came in for screening colonoscopy. He reported a family history of colon cancer in his older brother. Informed consent was obtained after reviewing the procedure in detail. Description of procedure: He was placed in left lateral decubitus position and his vital signs were monitored. Conscious sedation was achieved using Versed and fentanyl. Digital rectal examination was unremarkable. The colonoscope was then introduced in the rectum and advanced to the cecum. It was then withdrawn slowly and the mucosa examined in a systematic fashion. The quality of bowel preparation was rather poor. I was able to irrigate the mucosa and complete the examination. Findings: 1. Quite severe sigmoid diverticulosis 2. 3 mm pedunculated polyp at the distal sigmoid colon that was snared and retrieved. He tolerated the procedure well and was taken back to the nursing area in a stable condition. Impression: Screening colonoscopy. Positive family history. Sigmoid polyp excised. Recommend repeating in 2 years. Copy Copies To 1: KRISTINA VILLANUEVA XAVIER M MD Mar 23, 2018 10:49
--- NOTE | 2018-03-23 10:50 | Discharge Inst-Simple/Standard ---
Discharge Inst-Standard Discharge Medications New, Converted or Re-Newed RX: Other Patient Instructions/Follow Up Plan of Care/Instructions/FU: repeat colonoscopy in 2 years Activity as Tolerated: Yes Discharge Diet: No Restrictions KAYLA RUIZ MD Mar 23, 2018 10:50
[2018-03-23 11:10] VITALS: BP 122/70
[2018-03-23 11:40] VITALS: BP 116/80
[2018-03-23 11:50] VITALS: BP 116/80
== END 2018-03-23 11:50 | disposition home or self-care (01) ==
LOC: ENDO 07:53
PROVIDERS: ATTEND Surgery
DX: Z12.11 Encounter for screening for malignant neoplasm of colon (principal); K63.5 Polyp of colon; K57.30 Diverticulosis of large intestine without perforation or abscess without bleeding; Z80.0 Family history of malignant neoplasm of digestive organs; F17.210 Nicotine dependence, cigarettes, uncomplicated; I25.10 Atherosclerotic heart disease of native coronary artery without angina pectoris; E78.00 Pure hypercholesterolemia, unspecified; I10 Essential (primary) hypertension; N40.0 Benign prostatic hyperplasia without lower urinary tract symptoms; Z87.442 Personal history of urinary calculi; F32.9 Major depressive disorder, single episode, unspecified; Z85.828 Personal history of other malignant neoplasm of skin

== ENCOUNTER → 2018-04-27 | Outpatient (CLI) | payer MEDICARE, MEDICAID ==
[~2018-04-27] MED LIST changes: +RT-ALBUTEROL SULF 2.5 MG/3 ML PRE-MIX VIAL INH ONE
== END ==
LOC: RT 09:07
PROVIDERS: ATTEND Nurse Practitioner Family
DX: J44.9 Chronic obstructive pulmonary disease, unspecified (principal); R93.89 Abnormal findings on diagnostic imaging of other specified body structures; R06.00 Dyspnea, unspecified; Z72.0 Tobacco use
CPT/HCPCS: 94060; 94726; 94729

== ENCOUNTER 2018-06-25 18:16 | Emergency (ER) | payer MEDICARE, MEDICAID ==
[~2018-06-25] VITALS: Ht 188 cm; Wt 104.3 kg
[~2018-06-25 18:16] MED LIST changes: -RT-ALBUTEROL SULF 2.5 MG/3 ML PRE-MIX VIAL INH ONE; +SIMV5TAB22 PO; -SIMV5TAB6 PO
[2018-06-25] MEDS ORDERED: fentaNYL INJECTION 100 MCG/2 ML AMP IVP STA (18:24)
[2018-06-25] MEDS ORDERED: ALBU18HF2 (18:28)
[2018-06-25] MEDS ORDERED: ZOLP5TAB7 (18:28)
[2018-06-25] MEDS ORDERED: FLUT1BLS3 (18:28)
--- NOTE | 2018-06-25 18:31 | ED Neurological Problem ---
General Chief Complaint: Neuro-Stroke Like Symptoms Stated Complaint: STROKE LIKE SYMPTOMS Source: patient (SOMEWHAT LIMITED HISTORIAN) History of Present Illness Date Seen by Provider: Jun 25, 2018 Time Seen by Provider: 18:20 Initial Comments PT ARRIVES VIA POV FROM HOME--AMBULATES INTO ER WITHOUT DIFFICULTY C/O HEADACHE TO LEFT TOP OF HEAD C/O GENERALIZED WEAKNESS PT HAS RIGHT FACIAL DROOP, BUT DOES NOT SEEM TO RECOGNIZE THIS SYMPTOMS ONGOING FOR AT LEAST A WEEK, AND ARE NO DIFFERENT TODAY--STATES HE WOKE UP AT 0300, A WEEK AGO WITH THESE SYMPTOMS STATES HIS HEAD IS RINGING--ACTUALLY IS HIS MAIN COMPLAINT C/O PRESSURE AROUND RIGHT EAR STATES RIGHT EYE VISION IS A LITTLE DIFFERENT--DESCRIBES FLOATERS, AND DRY EYE. NO ACTUAL BLURRY OR DOUBLE VISION, ETC. NO PARESTHESIAS HAS NOT TAKEN ANYTHING FOR PAIN STATES HE WENT TO [facility] TODAY AND SAW CEMETERY KEEPER BALDEMAR JC, STATES SHE TOLD HIM HE HAD A STROKE AND SENT HIM HOME. NO TESTS DONE. NO HISTORY OF SIMILAR PCP: [facility], ALVERTO JC Allergies and Home Medications Allergies Coded Allergies: No Known Drug Allergies (Unverified , 08/09/08) Home Medications Amitriptyline HCl 25 Mg Tablet, 25 MG PO HS, (Reported) Aspirin 81 Mg Tablet.dr, 81 MG PO DAILY, (Reported) Bupropion HCl 150 Mg Tablet.er, 150 MG PO BID, (Reported) Carvedilol 12.5 Mg Tablet, 12.5 MG PO BID, (Reported) Clonidine HCl 0.1 Mg Tablet, 0.1 MG PO BID, (Reported) Doxazosin Mesylate 2 Mg Tablet, 0.5 MG PO DAILY, (Reported) Lisinopril 40 Mg Tablet, 40 MG PO DAILY, (Reported) Montelukast Sodium 10 Mg Tablet, 10 MG PO HS, (Reported) Simvastatin 40 Mg Tablet, 40 MG PO HS, (Reported) Tizanidine HCl 4 Mg Tablet, 4 MG PO HS, (Reported) Umeclidinium Brm/Vilanterol Tr 1 Each Blst.w.dev, 1 EACH IH DAILY, (Reported) Patient Home Medication List Home Medication List Reviewed: Yes Past Ihjwdct-Fudtfq-Zdfvcw Hx Patient Social History Alcohol Beverage of Choice: Vodka Type Used: Cigarettes Recent Foreign Travel: No Contact w/Someone Who Travel: No Recent Hopitalizations: No Immunizations Up To Date Date of Pneumonia Vaccine: Mar 16, 2015 Date of Influenza Vaccine: Feb 16, 2018 Seasonal Allergies Seasonal Allergies: No Past Medical History Surgeries: Yes Renal Respiratory: Yes COPD, Emphysema Cardiac: Yes Coronary Artery Disease, High Cholesterol, Hypertension Neurological: No Reproductive Disorders: No Sexually Transmitted Disease: No HIV/AIDS: No Genitourinary: Yes Benign Prostatic Hyperpl, Kidney Stones Gastrointestinal: No Musculoskeletal: No Endocrine: No HEENT: No Cancer: Yes (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 2.0oz. 104.623988pa; 29.6 BMI Method:Stated Progress/Results/Core Measures Results/Orders Lab Results Laboratory Tests Test 06/25/18 18:25 06/25/18 20:30 Range/Units White Blood Count 13.9 H 4.3-11.0 10^3/uL Red Blood Count 5.97 H 4.35-5.85 10^6/uL Hemoglobin 17.9 H 13.3-17.7 G/DL Hematocrit 52 40-54 % Mean Corpuscular Volume 87 80-99 FL Mean Corpuscular Hemoglobin 30 25-34 PG Mean Corpuscular Hemoglobin Concent 35 32-36 G/DL Red Cell Distribution Width 13.3 10.0-14.5 % Platelet Count 505 H 130-400 10^3/uL Mean Platelet Volume 8.6 7.4-10.4 FL Neutrophils (%) (Auto) 63 42-75 % Lymphocytes (%) (Auto) 24 12-44 % Monocytes (%) (Auto) 11 0-12 % Eosinophils (%) (Auto) 2 0-10 % Basophils (%) (Auto) 0 0-10 % Neutrophils # (Auto) 8.8 H 1.8-7.8 X 10^3 Lymphocytes # (Auto) 3.4 1.0-4.0 X 10^3 Monocytes # (Auto) 1.5 H 0.0-1.0 X 10^3 Eosinophils # (Auto) 0.2 0.0-0.3 10^3/uL Basophils # (Auto) 0.1 0.0-0.1 10^3/uL Erythrocyte Sedimentation Rate 1 0-30 MM/HR Prothrombin Time 12.7 12.2-14.7 SEC INR Comment 1.0 0.8-1.4 Activated Partial Thromboplast Time 28 24-35 SEC Sodium Level 138 135-145 MMOL/L Potassium Level 4.0 3.6-5.0 MMOL/L Chloride Level 99 98-107 MMOL/L Carbon Dioxide Level 27 21-32 MMOL/L Anion Gap 12 5-14 MMOL/L Blood Urea Nitrogen 13 7-18 MG/DL Creatinine 1.11 0.60-1.30 MG/DL Estimat Glomerular Filtration Rate > 60 BUN/Creatinine Ratio 12 Glucose Level 152 H 70-105 MG/DL Glucometer 149 H 70-110 MG/DL Calcium Level 10.4 H 8.5-10.1 MG/DL Corrected Calcium 8.5-10.1 MG/DL Magnesium Level 2.3 1.8-2.4 MG/DL Total Bilirubin 0.5 0.1-1.0 MG/DL Aspartate Amino Transf (AST/SGOT) 24 5-34 U/L Alanine Aminotransferase (ALT/SGPT) 22 0-55 U/L Alkaline Phosphatase 112 40-136 U/L Troponin I < 0.028 <0.028 NG/ML Total Protein 8.3 H 6.4-8.2 GM/DL Albumin 5.0 H 3.2-4.5 GM/DL Serum Alcohol < 10 <10 MG/DL Urine Color YELLOW Urine Clarity CLEAR Urine pH 6.5 5-9 Urine Specific [place] 1.010 L 1.016-1.022 Urine Protein NEGATIVE NEGATIVE Urine Glucose (UA) NEGATIVE NEGATIVE Urine Ketones NEGATIVE NEGATIVE Urine Nitrite NEGATIVE NEGATIVE Urine Bilirubin NEGATIVE NEGATIVE Urine Urobilinogen NORMAL NORMAL MG/DL Urine Leukocyte Esterase NEGATIVE NEGATIVE Urine RBC (Auto) 4+ H NEGATIVE Urine RBC 10-25 H /HPF Urine WBC RARE /HPF Urine Crystals PRESENT H /LPF Urine Calcium Oxalate Crystals FEW H /LPF Urine Bacteria NEGATIVE /HPF Urine Casts NONE /LPF Urine Mucus NEGATIVE /LPF Urine Culture Indicated NO My Orders Orders - PORFIRIO PICKENS DO Saline Lock/Iv-Start (06/25/18 18:24) Ekg Tracing (06/25/18 18:24) Monitor-Rhythm Ecg Trace Only (06/25/18 18:24) Ct Head Wo-R/O Stroke (06/25/18 18:24) Cbc With Automated Diff (06/25/18 18:24) Comprehensive Metabolic Panel (06/25/18 18:24) Erythrocyte Sedimentation Rate (06/25/18 18:24) Magnesium (06/25/18 18:24) Protime With Inr (06/25/18 18:24) Partial Thromboplastin Time (06/25/18 18:24) Troponin I (06/25/18 18:24) Ua Culture If Indicated (06/25/18 18:24) Chest 1 View, Ap/Pa Only (06/25/18 18:24) Fentanyl Injection (Sublimaze Injection (06/25/18 18:24) Alcohol (06/25/18 18:32) Labetalol Injection (Normodyne Injection (06/25/18 19:00) Ct Angio Head/Neck (06/25/18 19:33) Iohexol Injection (Omnipaque 350 Mg/Ml 1 (06/25/18 19:45) Di Iv Start (Assessment) .IV start (06/25/18 19:38) Contrast Received (Contrast Received) (06/25/18 19:45) Sodium Chloride Flush (Catheter Flush Sy (06/25/18 19:45) Ns (Ivpb) (Sodium Chloride 0.9% Ivpb Bag (06/25/18 19:45) Medications Given in ED Current Medications Medications Dose Ordered Sig/Sandra Route Start Time Stop Time Status Last Admin Dose Admin Iohexol 100 ml ONCE ONCE IV 06/25/18 19:45 06/25/18 19:46 DC 06/25/18 20:23 75 ML Labetalol HCl 20 mg ONCE ONCE IV 06/25/18 19:00 06/25/18 19:01 DC 06/25/18 18:58 20 MG Sodium Chloride 10 ml NEEDED PRN IV 06/25/18 19:45 06/25/18 20:23 10 ML Sodium Chloride 100 ml ONCE ONCE IV 06/25/18 19:45 06/25/18 19:46 DC 06/25/18 20:23 80 ML Vital Signs/I&O 06/25/18 18:20 Pulse 82 Resp 20 B/P (MAP) 197/129 (151) Pulse Ox 99 O2 Delivery Room Air Departure Impression Primary Impression: Facial paralysis on right side Additional Impressions: Left leg weakness Dysphagia Hypertension Disposition: HOME, SELF-CARE Condition: Stable Departure-Patient Inst. Referrals: [facility] (PCP) Primary Care Physician BALDEMAR JC (Family) Primary Care Physician Patient Instructions: Saavedra's Palsy (DC), Controlling Your Blood Pressure Through Lifestyle, DASH Diet, Dysphagia (DC), Going Up and Down Curbs or Stairs With a Walker or Crutches, High Blood Pressure (DC), Pureed Diet, Stroke (DC) Add. Discharge Instructions: TAKE YOUR MEDICATIONS PRESCRIBED PUREED FOODS/ SOFT FOODS--AVOID ANYTHING THAT REQUIRES CHEWING USE WALKER AT ALL TIMES FOLLOW UP WITH [facility] TOMORROW--CALL IN AM FOR APPOINTMENT All discharge instructions reviewed with patient and/or family. Voiced understanding. PORFIRIO PICKENS DO Jun 25, 2018 18:31
[2018-06-25 18:33] LABS: BASOPHILS # (AUTO) 0.1 10^3/uL (0.0-0.1); BASOPHILS % (AUTO) 0 % (0-10); EOSINOPHILS # (AUTO) 0.2 10^3/uL (0.0-0.3); EOSINOPHILS % (AUTO) 2 % (0-10); HEMATOCRIT 52 % (40-54); HEMOGLOBIN 17.9 G/DL (13.3-17.7); LYMPHOCYTES # (AUTO) 3.4 X 10^3 (1.0-4.0); LYMPHOCYTES % (AUTO) 24 % (12-44); MEAN CORPUSCULAR HEMOGLOBIN 30 PG (25-34); MEAN CORPUSCULAR HGB CONC 35 G/DL (32-36); MEAN CORPUSCULAR VOLUME 87 FL (80-99); MEAN PLATELET VOLUME 8.6 FL (7.4-10.4); MONOCYTES # (AUTO) 1.5 X 10^3 (0.0-1.0); MONOCYTES % (AUTO) 11 % (0-12); NEUTROPHILS # (AUTO) 8.8 X 10^3 (1.8-7.8); NEUTROPHILS % (AUTO) 63 % (42-75); PLATELET COUNT 505 10^3/uL (130-400); RED CELL DISTRIBUTION WIDTH 13.3 % (10.0-14.5); WHITE BLOOD COUNT 13.9 10^3/uL (4.3-11.0)
[2018-06-25 18:47] LABS: PROTHROMBIN TIME PATIENT 12.7 SEC (12.2-14.7)
[2018-06-25 18:57] LABS: ALANINE AMINOTRANSFERASE 22 U/L (0-55); ALKALINE PHOSPHATASE 112 U/L (40-136); BILIRUBIN,TOTAL 0.5 MG/DL (0.1-1.0); BUN/CREATININE RATIO 12; CALCIUM 10.4 MG/DL (8.5-10.1); CARBON DIOXIDE 27 MMOL/L (21-32); CHLORIDE 99 MMOL/L (98-107); CREATININE SERUM 1.11 MG/DL (0.60-1.30); GFR ESTIMATED > 60; GLUCOSE 152 MG/DL (70-105); MAGNESIUM 2.3 MG/DL (1.8-2.4); SODIUM 138 MMOL/L (135-145); TOTAL PROTEIN 8.3 GM/DL (6.4-8.2)
[2018-06-25] MEDS ORDERED: LABETALOL HCL 20 MG/4 ML VIAL IV ONE (19:00)
[2018-06-25 19:02] LABS: ERYTHROCYTE SEDIMENTATION RATE 1 MM/HR (0-30)
--- NOTE | 2018-06-25 19:29 | Diagnostic Imaging Report ---
PROCEDURE: CT head wo r/o stroke. TECHNIQUE: Multiple contiguous axial images were obtained through the brain without the use of intravenous contrast. INDICATION: Right-sided facial droop and left-sided headache and stroke-like symptoms. Reported symptoms x1 week. Increasing headache. COMPARISON: Comparison is made with a prior head CT from July 12, 2011. FINDINGS: There is spoziilr-up-dyeosqqc global cerebral volume loss. There are no CT findings of acute intracranial hemorrhage. There is no abnormal extra-axial collection. There is no mass effect or shift. There are no CT findings of territorial loss of rice-white differentiation or evidence of abnormal hypodensity within the basal ganglia or perlita. The posterior fossa demonstrates no acute process. There are previous operative changes related to right-sided mastoidectomy. Left mastoids are clear. The visualized paranasal sinuses are clear. Orbital contents are unremarkable. IMPRESSION: 1. Arqmghkk-gw-derxlwki global volume loss without CT evidence of an acute intracranial abnormality. 2. Previous right-sided mastoidectomy. Dictated by: Dictated on workstation # [id number]
--- NOTE | 2018-06-25 19:39 | Diagnostic Imaging Report ---
EXAMINATION: Portable chest INDICATION: Right-sided facial droop. Headache and stroke. Comparison is made to the prior study from 03/22/2017. FINDINGS: There are chronic interstitial changes present within the lungs. There is no alveolar consolidations or evidence of an effusion. There is no pneumothorax. Heart size appears stable. Mediastinal contours are appropriate. Pulmonary vascularity appears normal. No acute or suspicious osseous abnormality is demonstrated. IMPRESSION: 1. Chronic pulmonary interstitial lung disease without radiographic evidence of a new superimposed cardiopulmonary process. Dictated by: Dictated on workstation # [id number]
[2018-06-25] MEDS ORDERED: RECEIVED CONTRAST 20 ML VIAL IV SCH (19:45)
[2018-06-25] MEDS ORDERED: IOHEXOL 350 MG/ML 100 ML (OMNIPAQUE 350) VIAL IV ONE (19:45)
[2018-06-25] MEDS ORDERED: CATHETER FLUSH 10 ML SYR IV PRN (19:45)
[2018-06-25] MEDS ORDERED: NS 100 ML (IVPB) BAG IV ONE (19:45)
[2018-06-25 20:34] LABS: BILIRUBIN,URINE NEGATIVE (NEGATIVE); CLARITY,URINE CLEAR; COLOR,URINE YELLOW; GLUCOSE, URINE (UA) NEGATIVE (NEGATIVE); KETONES,URINE NEGATIVE (NEGATIVE); LEUKOCYTE ESTERASE ,URINE NEGATIVE (NEGATIVE); NITRITE,URINE NEGATIVE (NEGATIVE); PH,URINE 6.5 (5-9); PROTEIN,URINE NEGATIVE (NEGATIVE); UROBILINOGEN,URINE NORMAL (NORMAL)
[2018-06-25 20:47] LABS: BACTERIA,URINE NEGATIVE /HPF; CALCIUM OXALATE CRYSTALS,UR FEW /LPF; WBC,URINE RARE /HPF
--- NOTE | 2018-06-25 20:54 | Diagnostic Imaging Report ---
PROCEDURE: CT angiography of the head and CT angiography of the neck with and without contrast. TECHNIQUE: Contiguous noncontrast images were obtained from the skull base through the vertex. After intravenous contrast administration, helical CT angiography of the neck was performed. Source data was reformatted into multiple MIP projections. Delayed post contrast acquisition was also obtained. INDICATION: Right-sided weakness for one week. FINDINGS: The CT head exam performed earlier today failed to show any sign of an acute intracranial abnormality. On this study, there is no defect within the intracranial arterial circulation to suggest a thrombus. There is no sign of an aneurysm of the red [place] of [place] either. There is heavy hard and soft plaque formation involving the carotid bifurcation on the left. There is no hemodynamically significant stenosis identified, however. There is no evidence for hemodynamically significant stenosis of the right carotid system. The vertebral arteries are opacified and the vessels do seem small. There is no mass or adenopathy involving the neck. The lung apices show emphysematous change. IMPRESSION: 1. There is no acute intracranial abnormality. 2. There is no hemodynamically significant stenosis of either carotid system identified. The vertebral arteries are small. 3. If clinical concern regarding an acute abnormality persists, then MRI will be recommended for further study. 4. These results were discussed with Dr. Jennifer Law at the time of this dictation. Dictated by: Dictated on workstation # [id number]
[2018-06-25 21:25] VITALS: BP 155/107
== END 2018-06-25 21:25 | disposition home or self-care (01) ==
LOC: EDUNIT# 18:16 → ER 18:18
DX: R29.810 Facial weakness (principal); M62.81 Muscle weakness (generalized); R13.10 Dysphagia, unspecified; I10 Essential (primary) hypertension; J43.9 Emphysema, unspecified; I25.10 Atherosclerotic heart disease of native coronary artery without angina pectoris; E78.00 Pure hypercholesterolemia, unspecified; F32.9 Major depressive disorder, single episode, unspecified; Z87.448 Personal history of other diseases of urinary system; Z85.828 Personal history of other malignant neoplasm of skin; Z87.442 Personal history of urinary calculi; Z79.82 Long term (current) use of aspirin
CPT/HCPCS: 36415; 70450; 70496; 70498; 71045; 80053; 80320; 81000; 82962; 83735; 84484; 85025; 85610; 85652; 85730; 93005; 93041; 96374; 96375

== ENCOUNTER 2018-07-03 11:48 | Emergency (ER) | payer MEDICARE, MEDICAID ==
[~2018-07-03] VITALS: Ht 188 cm; Wt 104.3 kg
[~2018-07-03 11:48] MED LIST changes: +ALBU18HF2; +FLUT1BLS3; +ZOLP5TAB7
--- NOTE | 2018-07-03 12:01 | NUR ---
ambulated to room 10. SOA with audible wheezing.
[2018-07-03] MEDS ORDERED: RT-ALBUTEROL/IPRATROPIUM 3 ML (DUONEB) VIAL INH ONE (12:15)
--- NOTE | 2018-07-03 12:19 | ED Respiratory ---
General Chief Complaint: Respiratory Problems Stated Complaint: SOB Nursing Triage Note: TO TRIAGE WITH SOA FOR SEVERAL DAYS. RECENT ER VISIT LAST WEEK WITH GREG CHACON. Source: patient Exam Limitations: no limitations History of Present Illness Date Seen by Provider: Jul 03, 2018 Time Seen by Provider: 12:00 Initial Comments 62-year-old male who presents to the emergency room with complaints of shortness of air for the past 6 days. He reports that he was seen last Friday in the emergency room for Saavedra's palsy and the symptoms started the following day. He is currently on steroids from his visit for Saavedra's palsy. He has history of COPD and reports that he is out of his inhalers. He denies chest pain , nausea, or light headedness. Timing/Duration: week, getting worse Severity: mild Associated Symptoms: shortness of breath Allergies and Home Medications Allergies Coded Allergies: ampicillin (Verified Allergy, Severe, BLACK TONGUE. , 07/03/18) Home Medications Amitriptyline HCl 25 Mg Tablet, 25 MG PO HS, (Reported) Aspirin 81 Mg Tablet.dr, 81 MG PO DAILY, (Reported) Bupropion HCl 150 Mg Tablet.er, 150 MG PO BID, (Reported) Carvedilol 12.5 Mg Tablet, 12.5 MG PO BID, (Reported) Clonidine HCl 0.1 Mg Tablet, 0.1 MG PO BID, (Reported) Doxazosin Mesylate 2 Mg Tablet, 0.5 MG PO DAILY, (Reported) Ipratropium/Albuterol Sulfate 3 Ml Ampul.neb, 3 ML IH QID PRN for SHORTNESS OF BREATH Prescribed by: RAMIN RICHARDS on 07/03/18 1310 Lisinopril 40 Mg Tablet, 40 MG PO DAILY, (Reported) Montelukast Sodium 10 Mg Tablet, 10 MG PO HS, (Reported) Simvastatin 40 Mg Tablet, 40 MG PO HS, (Reported) Tizanidine HCl 4 Mg Tablet, 4 MG PO HS, (Reported) Umeclidinium Brm/Vilanterol Tr 1 Each Blst.w.dev, 1 EACH IH DAILY, (Reported) Patient Home Medication List Home Medication List Reviewed: Yes Review of Systems Review of Systems Constitutional: no symptoms reported, see HPI Respiratory: see HPI, short of breath, wheezing All Other Systems Reviewed Negative Unless Noted: Yes Past Agnyjcc-Vromkh-Bihvbe Hx Past Med/Social Hx: Reviewed Nursing Past Med/Soc Hx Patient Social History Alcohol Use: Past History Number of Drinks Today: FF Alcohol Beverage of Choice: Vodka Recreational Drug Use: No (SMOKES 1PPD) Smoking Status: Current Everyday Smoker Type Used: Cigarettes Recent Foreign Travel: No Contact w/Someone Who Travel: No Recent Infectious Disease Expo: No Recent Hopitalizations: No Physical Abuse: No Sexual Abuse: No Mistreated: No Fear: No Immunizations Up To Date Date of Pneumonia Vaccine: Mar 16, 2015 Date of Influenza Vaccine: Feb 16, 2018 Seasonal Allergies Seasonal Allergies: No Past Medical History Surgeries: Yes (RIGHT EAR SURGERY, RENAL STENTS AND STONE REMOVAL, ) Renal Respiratory: Yes (WEARS O2 2L NOC) COPD, Emphysema Cardiac: Yes Coronary Artery Disease, High Cholesterol, Hypertension Neurological: 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) Reproductive Disorders: No Sexually Transmitted Disease: No HIV/AIDS: No Genitourinary: Yes Benign Prostatic Hyperpl, Kidney Stones Gastrointestinal: No Musculoskeletal: No Endocrine: No HEENT: No Cancer: Yes (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 2.0oz. 104.442391lr; 29.6 BMI Method:Stated General Appearance: WD/WN, no apparent distress HEENT: PERRL/EOMI, normal ENT inspection, TMs normal, pharynx normal Respiratory: chest non-tender, normal breath sounds, no respiratory distress, no accessory muscle use, respiratory distress, wheezing (throughout lung vo) Cardiovascular: normal peripheral pulses, regular rate, rhythm, no edema, no gallop, no JVD, no murmur Gastrointestinal: normal bowel sounds Neurologic/Psychiatric: alert, normal mood/affect, oriented x 3 Skin: normal color, warm/dry Progress/Results/Core Measures Suspected Sepsis Recent Fever Within 48 Hours: No Infection Criteria Present: Suspected New Infection New/Unexplained Altered Menta: No Sepsis Screen: No Definite Risk SIRS Temperature:97.5 Pulse: 107 Respiratory Rate: 18 Laboratory Tests 07/03/18 12:30: White Blood Count 10.7 Blood Pressure 188 /91 Mean: 123 Laboratory Tests 07/03/18 12:30: Creatinine 0.93, Platelet Count 476H, Total Bilirubin 0.5 Results/Orders Lab Results Laboratory Tests Test 07/03/18 12:30 Range/Units White Blood Count 10.7 4.3-11.0 10^3/uL Red Blood Count 5.71 4.35-5.85 10^6/uL Hemoglobin 16.8 13.3-17.7 G/DL Hematocrit 50 40-54 % Mean Corpuscular Volume 87 80-99 FL Mean Corpuscular Hemoglobin 29 25-34 PG Mean Corpuscular Hemoglobin Concent 34 32-36 G/DL Red Cell Distribution Width 13.0 10.0-14.5 % Platelet Count 476 H 130-400 10^3/uL Mean Platelet Volume 8.8 7.4-10.4 FL Neutrophils (%) (Auto) 79 H 42-75 % Lymphocytes (%) (Auto) 15 12-44 % Monocytes (%) (Auto) 6 0-12 % Eosinophils (%) (Auto) 0 0-10 % Basophils (%) (Auto) 0 0-10 % Neutrophils # (Auto) 8.4 H 1.8-7.8 X 10^3 Lymphocytes # (Auto) 1.6 1.0-4.0 X 10^3 Monocytes # (Auto) 0.6 0.0-1.0 X 10^3 Eosinophils # (Auto) 0.0 0.0-0.3 10^3/uL Basophils # (Auto) 0.0 0.0-0.1 10^3/uL D-Dimer 0.49 0.00-0.49 UG/ML Sodium Level 136 135-145 MMOL/L Potassium Level 4.6 3.6-5.0 MMOL/L Chloride Level 99 98-107 MMOL/L Carbon Dioxide Level 27 21-32 MMOL/L Anion Gap 10 5-14 MMOL/L Blood Urea Nitrogen 13 7-18 MG/DL Creatinine 0.93 0.60-1.30 MG/DL Estimat Glomerular Filtration Rate > 60 BUN/Creatinine Ratio 14 Glucose Level 187 H 70-105 MG/DL Calcium Level 10.2 H 8.5-10.1 MG/DL Corrected Calcium 8.5-10.1 MG/DL Magnesium Level 2.3 1.8-2.4 MG/DL Total Bilirubin 0.5 0.1-1.0 MG/DL Aspartate Amino Transf (AST/SGOT) 24 5-34 U/L Alanine Aminotransferase (ALT/SGPT) 23 0-55 U/L Alkaline Phosphatase 88 40-136 U/L Troponin I < 0.028 <0.028 NG/ML B-Type Natriuretic Peptide < 10.0 <100.0 PG/ML Total Protein 7.9 6.4-8.2 GM/DL Albumin 4.6 H 3.2-4.5 GM/DL Smear Scan YES My Orders Orders - BERNOT,RAMIN Albuterol/Ipra Inhalation Soln (Duoneb I (07/03/18 12:15) Chest Pa/Lat (2 View) (07/03/18 12:06) Svn Small Volume Nebulizer (07/03/18 12:06) Ekg Tracing (07/03/18 12:14) Saline Lock/Iv-Start (07/03/18 12:14) Cbc With Automated Diff (07/03/18 12:14) Magnesium (07/03/18 12:14) Cardiac Profile 1 (07/03/18 12:14) Comprehensive Metabolic Panel (07/03/18 12:14) BNP (07/03/18 12:14) Fibrin Degradation Products (07/03/18 12:14) Medications Given in ED Vital Signs/I&O 07/03/18 07/03/18 07/03/18 11:52 12:39 13:49 Temp 97.5 Pulse 107 76 Resp 18 16 B/P (MAP) 188/91 (123) 143/71 (95) Pulse Ox 93 93 96 O2 Delivery Room Air Room Air Capillary Refill : Less Than 3 Seconds Blood Pressure Mean: 123 Progress Note : Time: 13:11 Progress Note I have seen and evaluated the patient. I've informed him of his EKG, imaging studies and laboratory findings. He is no longer short of breath after the DuoNeb treatment. His lungs have improved and there is no wheezing on auscultation. He reports that he does have a nebulizer machine at home and that he has a albuterol inhaler as well. Dr. Kinney for his COPD and I have instructed for him to make an appointment early next week for recheck. He will be sent home with duo nebs treatments to using his nebulizer. He agrees with plan of care, plans for discharge, return precautions were given. Diagnostic Imaging Diagonstic Imaging: Xray Plain Films/CT/US/NM/MRI: chest Comments [facility], [place] NAME: SHIRA GREGG [facility] REC#: [id number] PT STATUS: REG ER : 1955 PHYSICIAN: RAMIN RICHARDS ADMIT DATE: 07/03/18/ER Draft Date of Exam:07/03/18 CHEST PA/LAT (2 VIEW) Indication: Pneumonia. Time of exam: 12:17 PM Correlation is made with prior study from 06/25/2018. Heart size is stable. Lungs are hyperinflated consistent with COPD. No infiltrates are seen. The pulmonary sclerae is unremarkable. No effusion or pneumothorax detected. Nodular density in the right base is seen and may represent nipple shadow. Impression: COPD. No acute feature is detected. Dictated on workstation # [id number] Dict: 07/03/18 1227 Trans: 07/03/18 1232 [facility] [id number] Interpreted by: ALDO CANCINO MD Electronically signed by: Reviewed: Reviewed by Me Departure Impression Primary Impression: COPD exacerbation Disposition: 01 HOME, SELF-CARE Condition: Stable/Unchanged Departure-Patient Inst. Decision time for Depature: 13:11 Referrals: KRISH KINNEY DO [facility] (PCP/Family) Primary Care Physician Patient Instructions: Exacerbation of COPD (DC) Add. Discharge Instructions: Continue the steroids from your Saavedra's palsy diagnosis. You may use the nebulizer treatments that were prescribed 4 times a day or as needed for your shortness of breath. Call Dr. Kinney's office this afternoon to schedule an appointment for early next week. Return back to the emergency room for worsening symptoms, shortness of breath, chest pain, or any other concerns as needed. All discharge instructions reviewed with patient and/or family. Voiced understanding. Scripts Ipratropium/Albuterol Sulfate (Iprat-Albut 0.5-3(2.5) mg/3 ml) 3 Ml Ampul.neb 3 ML IH QID PRN for SHORTNESS OF BREATH, #20 EACH Prov: RAMIN RICHARDS 07/03/18 RAMIN RICHARDS Jul 03, 2018 12:19
--- NOTE | 2018-07-03 12:32 | Diagnostic Imaging Report ---
Indication: Pneumonia. Time of exam: 12:17 PM Correlation is made with prior study from 06/25/2018. Heart size is stable. Lungs are hyperinflated consistent with COPD. No infiltrates are seen. The pulmonary sclerae is unremarkable. No effusion or pneumothorax detected. Nodular density in the right base is seen and may represent nipple shadow. Impression: COPD. No acute feature is detected. Dictated by: Dictated on workstation # [id number]
[2018-07-03 12:38] LABS: BASOPHILS % (AUTO) 0 % (0-10); EOSINOPHILS % (AUTO) 0 % (0-10); HEMATOCRIT 50 % (40-54); HEMOGLOBIN 16.8 G/DL (13.3-17.7); LYMPHOCYTES # (AUTO) 1.6 X 10^3 (1.0-4.0); LYMPHOCYTES % (AUTO) 15 % (12-44); MEAN CORPUSCULAR HEMOGLOBIN 29 PG (25-34); MEAN CORPUSCULAR HGB CONC 34 G/DL (32-36); MEAN CORPUSCULAR VOLUME 87 FL (80-99); MEAN PLATELET VOLUME 8.8 FL (7.4-10.4); MONOCYTES # (AUTO) 0.6 X 10^3 (0.0-1.0); MONOCYTES % (AUTO) 6 % (0-12); NEUTROPHILS # (AUTO) 8.4 X 10^3 (1.8-7.8); NEUTROPHILS % (AUTO) 79 % (42-75); PLATELET COUNT 476 10^3/uL (130-400); WHITE BLOOD COUNT 10.7 10^3/uL (4.3-11.0)
[2018-07-03 12:56] LABS: SMEAR SCAN COMMENT YES
[2018-07-03 13:01] LABS: ALANINE AMINOTRANSFERASE 23 U/L (0-55); ALBUMIN 4.6 GM/DL (3.2-4.5); ALKALINE PHOSPHATASE 88 U/L (40-136); BILIRUBIN,TOTAL 0.5 MG/DL (0.1-1.0); BUN/CREATININE RATIO 14; CALCIUM 10.2 MG/DL (8.5-10.1); CARBON DIOXIDE 27 MMOL/L (21-32); CHLORIDE 99 MMOL/L (98-107); CREATININE SERUM 0.93 MG/DL (0.60-1.30); GFR ESTIMATED > 60; GLUCOSE 187 MG/DL (70-105); MAGNESIUM 2.3 MG/DL (1.8-2.4); POTASSIUM 4.6 MMOL/L (3.6-5.0); SODIUM 136 MMOL/L (135-145); TOTAL PROTEIN 7.9 GM/DL (6.4-8.2)
[2018-07-03] MEDS ORDERED: IPRA3AMP31 IH (13:10)
[2018-07-03 13:49] VITALS: BP 143/71
== END 2018-07-03 13:54 | disposition home or self-care (01) ==
LOC: EDUNIT# 11:48 → ER 11:50
DX: J44.1 Chronic obstructive pulmonary disease with (acute) exacerbation (principal); G51.0 Bell's palsy; I25.10 Atherosclerotic heart disease of native coronary artery without angina pectoris; E78.00 Pure hypercholesterolemia, unspecified; F32.9 Major depressive disorder, single episode, unspecified; I10 Essential (primary) hypertension; F17.210 Nicotine dependence, cigarettes, uncomplicated; Z98.890 Other specified postprocedural states; Z87.448 Personal history of other diseases of urinary system; Z99.81 Dependence on supplemental oxygen; Z85.828 Personal history of other malignant neoplasm of skin; Z88.0 Allergy status to penicillin; Z79.82 Long term (current) use of aspirin; Z91.14 Patient's other noncompliance with medication regimen
CPT/HCPCS: 36415; 71046; 80053; 83735; 83880; 84484; 85025; 85379; 93005; 94640

== ENCOUNTER 2018-08-29 23:55 | Emergency (ER) | payer MEDICARE, MEDICAID ==
[~2018-08-29] VITALS: Ht 188 cm; Wt 104.4 kg
[~2018-08-29 23:55] MED LIST changes: -ALBU18HF2; +ALBU18HF2 INH; +IPRA3AMP31 IH; -ZOLP5TAB7; +ZOLP5TAB7 PO
[2018-08-30 00:14] VITALS: BP 153/95
--- NOTE | 2018-08-30 00:27 | ED Headache ---
General Chief Complaint: General Problems/Pain Stated Complaint: SEVERE PAIN IN RIGHT SIDE OF FACE Nursing Triage Note: right sided facial pain Nursing Sepsis Screen: No Definite Risk Source: patient Exam Limitations: no limitations History of Present Illness Date Seen by Provider: August 30, 2018 Time Seen by Provider: 00:12 Initial Comments Patient presents ER by private conveyance with chief complaint of the last month he was diagnosed with Saavedra's palsy on the right face and has had some pain with it for which she was put on gabapentin and acyclovir and steroids. He thought it was about over and gone but then in the last week come back and progressively gotten more painful. The gabapentin was not helping 300 mg twice a day. He was using ibuprofen with no relief so he decided to try some alcohol tonight and had 4 drinks of alcohol 2 glasses of wine and 2 glasses of vodka. The alcohol did not help so he decided come the ER to help. He has a history of cerebral palsy. No new problems walking. Allergies and Home Medications Allergies Coded Allergies: ampicillin (Verified Allergy, Severe, BLACK TONGUE. , 07/03/18) Home Medications Amitriptyline HCl 25 Mg Tablet, 25 MG PO HS, (Reported) Aspirin 81 Mg Tablet.dr, 81 MG PO DAILY, (Reported) Bupropion HCl 150 Mg Tablet.er, 150 MG PO BID, (Reported) Carvedilol 12.5 Mg Tablet, 12.5 MG PO BID, (Reported) Clonidine HCl 0.1 Mg Tablet, 0.1 MG PO BID, (Reported) Doxazosin Mesylate 2 Mg Tablet, 0.5 MG PO DAILY, (Reported) Ipratropium/Albuterol Sulfate 3 Ml Ampul.neb, 3 ML IH QID PRN for SHORTNESS OF BREATH Prescribed by: RAMIN RICHARDS on 07/03/18 1310 Lisinopril 40 Mg Tablet, 40 MG PO DAILY, (Reported) Montelukast Sodium 10 Mg Tablet, 10 MG PO HS, (Reported) Simvastatin 40 Mg Tablet, 40 MG PO HS, (Reported) Tizanidine HCl 4 Mg Tablet, 4 MG PO HS, (Reported) Umeclidinium Brm/Vilanterol Tr 1 Each Blst.w.dev, 1 EACH IH DAILY, (Reported) Patient Home Medication List Home Medication List Reviewed: Yes Review of Systems Review of Systems Constitutional: No chills, No fever, No malaise Eyes: Denies Blindness, Denies Blurred Vision, Denies Drainage Ears, Nose, Mouth, Throat: denies ear pain, denies ear discharge Respiratory: No cough, No short of breath Cardiovascular: No chest pain, No palpitations Gastrointestinal: No abdominal pain, No nausea Past Pabzonu-Aalnum-Jjhask Hx Patient Social History Alcohol Use: Occasionally Uses Number of Drinks Today: FF Alcohol Beverage of Choice: Wine, Vodka Recreational Drug Use: No Smoking Status: Current Everyday Smoker Type Used: Cigarettes Recent Foreign Travel: No Contact w/Someone Who Travel: No Recent Infectious Disease Expo: No Recent Hopitalizations: No Immunizations Up To Date Date of Pneumonia Vaccine: Mar 16, 2015 Date of Influenza Vaccine: Feb 16, 2018 Seasonal Allergies Seasonal Allergies: No Past Medical History Surgeries: Yes Cardiac, Renal Respiratory: Yes (WEARS O2 2L NOC) COPD, Emphysema Cardiac: Yes Coronary Artery Disease, High Cholesterol, Hypertension Neurological: 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) Reproductive Disorders: No Sexually Transmitted Disease: No HIV/AIDS: No Genitourinary: Yes Benign Prostatic Hyperpl, Kidney Stones Gastrointestinal: Yes (COLONOSCOPY 02/2018-POLYPECTOMY, DIVERTICULAR DISEASE NOTED) Diverticulosis, Polyps Musculoskeletal: No Endocrine: No HEENT: Yes Cancer: Yes (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 2.0oz. 104.685940rd; 29.6 BMI Method:Stated General Appearance: WD/WN, mild distress HEENT: PERRL/EOMI, pharynx normal Neck: full range of motion, supple, normal inspection Cardiovascular: normal peripheral pulses, regular rate, rhythm Respiratory: normal breath sounds, no respiratory distress, no accessory muscle use Gastrointestinal: normal bowel sounds, non tender, soft Progress/Results/Core Measures Results/Orders My Orders Orders - BRENNA KEYES Gabapentin Capsule/Tablet (Neurontin Cap (08/30/18 00:30) Ketorolac Injection (Toradol Injection) (08/30/18 00:30) Fentanyl Injection (Sublimaze Injection (08/30/18 00:30) Methylprednisolone Sod Succ (Solu-Medrol (08/30/18 00:30) Medications Given in ED Current Medications Medications Dose Ordered Sig/Sandra Route Start Time Stop Time Status Last Admin Dose Admin Fentanyl Citrate 50 mcg ONCE ONCE IVP 08/30/18 00:30 08/30/18 00:31 DC 08/30/18 00:32 50 MCG Gabapentin 600 mg ONCE ONCE PO 08/30/18 00:30 08/30/18 00:31 DC 08/30/18 00:32 600 MG Ketorolac Tromethamine 30 mg ONCE ONCE IVP 08/30/18 00:30 08/30/18 00:31 DC 08/30/18 00:32 30 MG Methylprednisolone Sodium Succinate 125 mg ONCE ONCE IVP 08/30/18 00:30 08/30/18 00:31 DC 08/30/18 00:33 125 MG Vital Signs/I&O 08/30/18 08/30/18 00:14 00:32 Temp 97.7 97.7 Pulse 85 Resp 18 B/P (MAP) 153/95 (114) Pulse Ox 93 O2 Delivery Room Air Blood Pressure Mean: 114 Progress Progress Note : Time: 03:00 Progress Note We explained the risks of mixing alcohol with opiates and the gabapentin but patient says his pain is very severe and was willing to try it. Ordered a dose of Toradol, fentanyl and gabapentin. Explained the patient would have him wait in the room to see if he gets him adequate relief of his symptoms. We planned to give him some steroids and acyclovir as he says his symptoms are getting better almost gone but then they came back so it could represent a re-emergence of the viral infection causing his Saavedra's palsy. Patient thought this was a good plan but apparently became impatient and told housekeeping that he was going to leave. Nursing Codman time to have him sign some AGAINST MEDICAL ADVICE paperwork. Was explained to him that did not allow us to finish his workup he could have an interaction with the alcohol and opiates and that he should not go home and drink. The patient made it as far as the lobby when he became very lightheaded set down and was brought back the ER. Departure Impression Primary Impression: Trigeminal neuralgia of right side of face Additional Impression: Saavedra's palsy Disposition: AGAINST MEDICAL ADVICE Condition: Against Medical Advice Departure-Patient Inst. Decision time for Depature: 00:00 Referrals: [facility] ([facility]P/Family) Primary Care Physician Patient Instructions: Saavedra's Palsy (DC) Add. Discharge Instructions: Please follow-up with your primary care provider. All discharge instructions reviewed with patient and/or family. Voiced understanding. BRENNA KEYES August 30, 2018 00:27
[2018-08-30] MEDS ORDERED: fentaNYL INJECTION 100 MCG/2 ML AMP IVP ONE (00:30)
[2018-08-30] MEDS ORDERED: GABAPENTIN 600 MG (NEURONTIN) TAB PO ONE (00:30)
[2018-08-30] MEDS ORDERED: KETOROLAC 30 MG/ML VIAL IVP ONE (00:30)
[2018-08-30] MEDS ORDERED: methylPREDNISolone 125 MG (Solu-MEDROL) VIAL IVP ONE (00:30)
--- NOTE | 2018-08-30 00:33 | NUR ---
pt continuing to be beligerent , informed pt of medication names/purposes. pt continuing to yell at staff. instructed pt their were other patients here et. yelling at staff is not acceptable.
== END 2018-08-30 00:45 | disposition left against medical advice (07) ==
LOC: EDUNIT# 23:55 → ER 23:58
DX: G51.0 Bell's palsy (principal); G50.0 Trigeminal neuralgia; J43.9 Emphysema, unspecified; E78.00 Pure hypercholesterolemia, unspecified; I10 Essential (primary) hypertension; I25.10 Atherosclerotic heart disease of native coronary artery without angina pectoris; F32.9 Major depressive disorder, single episode, unspecified; F17.210 Nicotine dependence, cigarettes, uncomplicated; Z88.0 Allergy status to penicillin; Z87.19 Personal history of other diseases of the digestive system; Z85.828 Personal history of other malignant neoplasm of skin; Z86.010 Personal history of colon polyps; Z87.442 Personal history of urinary calculi; Z79.82 Long term (current) use of aspirin; Z98.890 Other specified postprocedural states

== ENCOUNTER 2018-08-30 01:13 | Observation (INO) | payer MEDICARE, MEDICAID ==
[2018-08-30] VITALS (9 sets, daily range): BP systolic 117–132; BP diastolic 63–83
[~2018-08-30] VITALS: Ht 188 cm; Wt 104.3 kg
--- NOTE | 2018-08-30 01:13 | NUR ---
pt left from previous visit against medical advice. while pt in waiting room pt became drowsy/sweaty. pt brought back to e.d. hypotensive.
[2018-08-30] MEDS ORDERED: NS IV 1000 ML 1,000 ML IV ONE ×2 (01:30)
[2018-08-30 01:43] LABS: BASOPHILS % (AUTO) 0 % (0-10); EOSINOPHILS # (AUTO) 0.1 10^3/uL (0.0-0.3); EOSINOPHILS % (AUTO) 1 % (0-10); HEMATOCRIT 48 % (40-54); LYMPHOCYTES # (AUTO) 3.2 X 10^3 (1.0-4.0); LYMPHOCYTES % (AUTO) 33 % (12-44); MEAN CORPUSCULAR HEMOGLOBIN 30 PG (25-34); MEAN CORPUSCULAR HGB CONC 35 G/DL (32-36); MEAN CORPUSCULAR VOLUME 86 FL (80-99); MEAN PLATELET VOLUME 8.7 FL (7.4-10.4); MONOCYTES # (AUTO) 0.7 X 10^3 (0.0-1.0); MONOCYTES % (AUTO) 8 % (0-12); NEUTROPHILS # (AUTO) 5.6 X 10^3 (1.8-7.8); NEUTROPHILS % (AUTO) 58 % (42-75); PLATELET COUNT 481 10^3/uL (130-400); WHITE BLOOD COUNT 9.6 10^3/uL (4.3-11.0)
--- NOTE | 2018-08-30 01:45 | ED Neurological Problem ---
General Chief Complaint: General Problems/Pain Nursing Triage Note: hypotension Nursing Sepsis Screen: No Definite Risk Source: patient Exam Limitations: no limitations History of Present Illness Date Seen by Provider: August 30, 2018 Time Seen by Provider: 01:14 Initial Comments Patient was sitting on the lobby after he had been recently seen for his right facial pain and Saavedra's palsy and he decided to leave AGAINST MEDICAL ADVICE immediately after receiving the pain meds before being reevaluated. He went and sat down and then became very ill and near syncopal event in the chair. Did not fall or strike his head. Patient said the pain in his face however feeling much better. He did drink about 4 drinks of alcohol before coming in received 50 g of fentanyl, Toradol and a dose of oral gabapentin. Allergies and Home Medications Allergies Coded Allergies: ampicillin (Verified Allergy, Severe, BLACK TONGUE. , 07/03/18) Home Medications Amitriptyline HCl 25 Mg Tablet, 25 MG PO HS, (Reported) Aspirin 81 Mg Tablet.dr, 81 MG PO DAILY, (Reported) Bupropion HCl 150 Mg Tablet.er, 150 MG PO BID, (Reported) Carvedilol 12.5 Mg Tablet, 12.5 MG PO BID, (Reported) Clonidine HCl 0.1 Mg Tablet, 0.1 MG PO BID, (Reported) Doxazosin Mesylate 2 Mg Tablet, 0.5 MG PO DAILY, (Reported) Ipratropium/Albuterol Sulfate 3 Ml Ampul.neb, 3 ML IH QID PRN for SHORTNESS OF BREATH Prescribed by: RAMIN RICHARDS on 07/03/18 1310 Lisinopril 40 Mg Tablet, 40 MG PO DAILY, (Reported) Montelukast Sodium 10 Mg Tablet, 10 MG PO HS, (Reported) Simvastatin 40 Mg Tablet, 40 MG PO HS, (Reported) Tizanidine HCl 4 Mg Tablet, 4 MG PO HS, (Reported) Umeclidinium Brm/Vilanterol Tr 1 Each Blst.w.dev, 1 EACH IH DAILY, (Reported) Patient Home Medication List Home Medication List Reviewed: Yes Review of Systems Review of Systems Constitutional: No chills, No diaphoresis Eyes: Denies Blindness, Denies Blurred Vision, Denies Drainage Ears, Nose, Mouth, Throat: denies ear pain, denies ear discharge Respiratory: No cough, No short of breath Cardiovascular: No chest pain, No edema Gastrointestinal: No constipation, No diarrhea, No nausea Past Wpjxofn-Zcvmaj-Lpfxpc Hx Patient Social History Alcohol Use: Occasionally Uses Number of Drinks Today: FF Alcohol Beverage of Choice: Wine, Vodka Recreational Drug Use: No (SMOKES 1PPD) Smoking Status: Current Everyday Smoker Type Used: Cigarettes Recent Foreign Travel: No Contact w/Someone Who Travel: No Recent Infectious Disease Expo: No Recent Hopitalizations: No Immunizations Up To Date Date of Pneumonia Vaccine: Mar 16, 2015 Date of Influenza Vaccine: Feb 16, 2018 Seasonal Allergies Seasonal Allergies: No Past Medical History Surgeries: Yes Cardiac, Renal Respiratory: Yes (WEARS O2 2L NOC) COPD, Emphysema Cardiac: Yes Coronary Artery Disease, High Cholesterol, Hypertension Neurological: 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) Reproductive Disorders: No Sexually Transmitted Disease: No HIV/AIDS: No Genitourinary: Yes Benign Prostatic Hyperpl, Kidney Stones Gastrointestinal: Yes (COLONOSCOPY 02/2018-POLYPECTOMY, DIVERTICULAR DISEASE NOTED) Diverticulosis, Polyps Musculoskeletal: No Endocrine: No HEENT: Yes Cancer: Yes (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) Skin Did You Recieve Any Treatments: Yes What Type of Treatment Did You: Surgical Intervention Psychosocial: Yes Depression Integumentary: No Blood Disorders: No Adverse Reaction/Blood Tranf: No (N/A) Family Medical History No Pertinent Family Hx Physical Exam Vital Signs Vital Signs - First Documented 08/30/18 01:13 Temp 97.9 Pulse 72 Resp 14 B/P (MAP) 63/37 (46) Pulse Ox 94 O2 Delivery Room Air Capillary Refill : Less Than 3 Seconds Height, Weight, BMI Height: 6'2.00" Weight: 230lbs. 2.0oz. [id number]; 29.6 BMI Method:Stated General Appearance: WD/WN, mild distress HEENT: PERRL/EOMI, normal ENT inspection, TMs normal, pharynx normal Neck: full range of motion, supple, normal inspection Respiratory: chest non-tender, lungs clear, normal breath sounds, no respiratory distress, no accessory muscle use Cardiovascular: normal peripheral pulses, regular rate, rhythm Peripheral Pulses: 2+ Dorsalis Pedis (R), 2+ Left Dors-Pedis (L) Gastrointestinal: normal bowel sounds, non tender, soft Extremities: normal range of motion, non-tender, normal capillary refill Neurologic/Psychiatric: alert, oriented x 3, other (somnolent, slurred speech) Crainal Nerves: normal hearing, PERRL, abnormal speech (slow but not slurred) Coordination/Gait: abnormal gait (to weak to transfer without 2 people assist) Progress/Results/Core Measures Results/Orders Lab Results Laboratory Tests Test 08/30/18 01:10 Range/Units White Blood Count 9.6 4.3-11.0 10^3/uL Red Blood Count 5.62 4.35-5.85 10^6/uL Hemoglobin 17.0 13.3-17.7 G/DL Hematocrit 48 40-54 % Mean Corpuscular Volume 86 80-99 FL Mean Corpuscular Hemoglobin 30 25-34 PG Mean Corpuscular Hemoglobin Concent 35 32-36 G/DL Red Cell Distribution Width 14.0 10.0-14.5 % Platelet Count 481 H 130-400 10^3/uL Mean Platelet Volume 8.7 7.4-10.4 FL Neutrophils (%) (Auto) 58 42-75 % Lymphocytes (%) (Auto) 33 12-44 % Monocytes (%) (Auto) 8 0-12 % Eosinophils (%) (Auto) 1 0-10 % Basophils (%) (Auto) 0 0-10 % Neutrophils # (Auto) 5.6 1.8-7.8 X 10^3 Lymphocytes # (Auto) 3.2 1.0-4.0 X 10^3 Monocytes # (Auto) 0.7 0.0-1.0 X 10^3 Eosinophils # (Auto) 0.1 0.0-0.3 10^3/uL Basophils # (Auto) 0.0 0.0-0.1 10^3/uL Sodium Level 140 135-145 MMOL/L Potassium Level 3.9 3.6-5.0 MMOL/L Chloride Level 107 98-107 MMOL/L Carbon Dioxide Level 18 L 21-32 MMOL/L Anion Gap 15 H 5-14 MMOL/L Blood Urea Nitrogen 8 7-18 MG/DL Creatinine 1.08 0.60-1.30 MG/DL Estimat Glomerular Filtration Rate > 60 BUN/Creatinine Ratio 7 Glucose Level 158 H 70-105 MG/DL Calcium Level 9.1 8.5-10.1 MG/DL Corrected Calcium 8.5-10.1 MG/DL Total Bilirubin 0.5 0.1-1.0 MG/DL Aspartate Amino Transf (AST/SGOT) 22 5-34 U/L Alanine Aminotransferase (ALT/SGPT) 20 0-55 U/L Alkaline Phosphatase 105 40-136 U/L Total Protein 7.5 6.4-8.2 GM/DL Albumin 4.7 H 3.2-4.5 GM/DL My Orders Orders - BRENNA KEYES Ed Iv/Invasive Line Start (08/30/18 01:16) Ns Iv 1000 Ml (Sodium Chloride 0.9%) (08/30/18 01:30) Ns Iv 1000 Ml (Sodium Chloride 0.9%) (08/30/18 01:30) Medications Given in ED Current Medications Medications Dose Ordered Sig/Sandra Route Start Time Stop Time Status Last Admin Dose Admin Sodium Chloride 1,000 ml @ 100 mls/hr Q10H ONCE IV 08/30/18 01:30 08/30/18 11:29 08/30/18 01:15 100 MLS/HR Sodium Chloride 1,000 ml @ 100 mls/hr Q10H ONCE IV 08/30/18 01:30 08/30/18 11:29 08/30/18 01:15 100 MLS/HR Vital Signs/I&O 08/30/18 01:13 Temp 97.9 Pulse 72 Resp 14 B/P (MAP) 63/37 (46) Pulse Ox 94 O2 Delivery Room Air Blood Pressure Mean: 46 Progress Progress Note : Time: 01:43 Progress Note Blood pressure was low when his initial vital signs were obtained with a systolic of 73. This is likely iatrogenic from the combination of the abdomen, alcohol and opiates. We will obtain some lab work started him on 2 L which is Oleg improved. Blood pressure 97/60 and his heart rate is back down to the 70s from about 105 when he arrived. We'll observe him overnight in the unit since his blood pressure was soft with some fluids going. Departure Communication (Admissions) Time/Spoke to Admitting Phy: 00:30 Discussed case lab imaging findings and plan with Dr. Shi and he agrees to observe the patient in the unit. Impression Primary Impression: Iatrogenic hypotension Additional Impressions: Trigeminal neuralgia of right side of face Saavedra's palsy Disposition: ADMITTED INPATIENT Condition: Stable Admissions Decision to Admit Reason: Admit from ER (General) Decision to Admit/Date: August 30, 2018 Time/Decision to Admit Time: 01:16 Departure-Patient Inst. Referrals: [facility] (PCP/Family) Primary Care Physician BRENNA KEYES August 30, 2018 01:45
[2018-08-30 01:57] LABS: ALANINE AMINOTRANSFERASE 20 U/L (0-55); ALBUMIN 4.7 GM/DL (3.2-4.5); ALKALINE PHOSPHATASE 105 U/L (40-136); BILIRUBIN,TOTAL 0.5 MG/DL (0.1-1.0); BUN/CREATININE RATIO 7; CALCIUM 9.1 MG/DL (8.5-10.1); CARBON DIOXIDE 18 MMOL/L (21-32); CHLORIDE 107 MMOL/L (98-107); CREATININE SERUM 1.08 MG/DL (0.60-1.30); GFR ESTIMATED > 60; GLUCOSE 158 MG/DL (70-105); POTASSIUM 3.9 MMOL/L (3.6-5.0); SODIUM 140 MMOL/L (135-145); TOTAL PROTEIN 7.5 GM/DL (6.4-8.2)
--- NOTE | 2018-08-30 03:45 | NUR ---
Pt agitated that he is unable to get TV to work. This RN attempted to explain multiple times to pt on how to operate remote control. Pt agitated and states that he will just call back in a few minutes if he cannot get it to work. Pt agitated, refusing CXR at this time, pt wanting to know when he could eat pt informed that he is on a Regular diet and breakfast will be available at 6AM, and that this RN will provide a snack if he would like, pt declines.
[2018-08-30 04:10] LABS: BASOPHILS % (AUTO) 0 % (0-10); EOSINOPHILS % (AUTO) 0 % (0-10); HEMATOCRIT 48 % (40-54); HEMOGLOBIN 16.4 G/DL (13.3-17.7); LYMPHOCYTES # (AUTO) 1.3 X 10^3 (1.0-4.0); LYMPHOCYTES % (AUTO) 9 % (12-44); MEAN CORPUSCULAR HEMOGLOBIN 30 PG (25-34); MEAN CORPUSCULAR HGB CONC 34 G/DL (32-36); MEAN CORPUSCULAR VOLUME 88 FL (80-99); MEAN PLATELET VOLUME 8.5 FL (7.4-10.4); MONOCYTES # (AUTO) 0.1 X 10^3 (0.0-1.0); MONOCYTES % (AUTO) 1 % (0-12); NEUTROPHILS # (AUTO) 13.7 X 10^3 (1.8-7.8); NEUTROPHILS % (AUTO) 91 % (42-75); PLATELET COUNT 436 10^3/uL (130-400); WHITE BLOOD COUNT 15.1 10^3/uL (4.3-11.0)
--- NOTE | 2018-08-30 04:10 | NUR ---
EICU NOTIFIED OF SBP 120'S - 130'S ON ARRIVAL TO ICU, AND LR ORDERED FOR 200ML/HR WILL AWAIT ORDERS.
--- NOTE | 2018-08-30 04:18 | NUR ---
SHIRA GREGG admitted to room CU1-1, with an admitting diagnosis of HYPOTENSION, on 08/30/18 from ER via STRETCHER, accompanied by STAFF.SHIRA GREGG introduced to surroundings, call light, bed controls, phone, TV, temperature control, lights, meal times, smoking policy, visitor policy, side rail policy, bathrooms and showers. Patient Rights given to patient in the handbook.SHIRA GREGG verbalizes understanding that [facility] is not responsible for the loss or damage to any personal effects or valuables that are kept in the patients possession during their hospitalization.
[2018-08-30 04:22] LABS: BUN/CREATININE RATIO 7; CALCIUM 8.3 MG/DL (8.5-10.1); CARBON DIOXIDE 20 MMOL/L (21-32); CHLORIDE 109 MMOL/L (98-107); CREATININE SERUM 0.95 MG/DL (0.60-1.30); GFR ESTIMATED > 60; GLUCOSE 143 MG/DL (70-105); PHOSPHORUS 2.2 MG/DL (2.3-4.7); POTASSIUM 4.3 MMOL/L (3.6-5.0); SODIUM 141 MMOL/L (135-145)
[2018-08-30 04:27] LABS: BAND NEUTROPHILS 3 %; LYMPHOCYTES % (MANUAL) 6 %; MONOCYTES % (MANUAL) 2 %; NEUTROPHILS % (MANUAL) 89 %; RBC MORPH NORMAL
[2018-08-30] MEDS ORDERED: LACTATED RINGERS 1,000 ML IV ONE (04:36)
--- NOTE | 2018-08-30 04:36 | NUR ---
RETURN CALL FROM E-ICU TO CONTINUE WITH LR AT 200ML/HR PREVIOUSLY ORDERED.
[2018-08-30] MEDS ORDERED: LACTATED RINGERS 1,000 ML IV SCH (05:00)
[2018-08-30] MEDS ORDERED: ONDANSETRON 4 MG/2 ML (SDV) Z0FRAN IV PRN (05:00)
[2018-08-30] MEDS ORDERED: NOREPINEPHRINE 4 MG/NS 250 ML DRIP IV SCH ×2 (05:00)
[2018-08-30] MEDS ORDERED: ACETAMINOPHEN 500 MG TAB (TYLENOL) PO PRN (05:00)
[2018-08-30] MEDS ORDERED: KCL 20 MEQ TAB (K-DUR) PO SCH (06:00)
[2018-08-30] MEDS ORDERED: POTASSIUM CL 10MEQ/50ML IVPB 50 ML IV SCH (06:00)
[2018-08-30] MEDS ORDERED: MAGNESIUM 1 GM/100 ML IVPB 100 ML IV SCH (06:00)
--- NOTE | 2018-08-30 08:37 | History & Physicial (CHS) ---
HPI History of Present Illness: 62-year-old male presented to [facility] emergency room during the late evening of August 29, 2018 with discomfort to the right side of his face. He apparently was in quite a bit of pain and had previously been diagnosed with Saavedra's palsy. He had received fentanyl 50 g in the emergency room for pain management. During the course of his workup he had decided to leave AGAINST MEDICAL ADVICE and while waiting in the lobby he apparently had syncope or near syncope. Patient did not apparently hit his head. Upon further questioning he had also had alcoholic drinks also in the day of presentation. Patient had also taken Toradol and 1 dose of gabapentin while at home. Source: patient Exam Limitations: clinical condition Date seen by provider: August 30, 2018 Time Seen by Provider: 06:45 Attending Physician Merline Chau MD [facility] [place] Consult Date of Admission August 30, 2018 at 01:35 Home Medications Home Medications Reviewed patient Home Medication Reconciliation performed by pharmacy medication reconciliations clean room technician and/or nursing. Patients Allergies have been reviewed. Allergies Coded Allergies: ampicillin (Verified Allergy, Severe, BLACK TONGUE. , 07/03/18) ZYD-Voliba-Itnglv Hx Patient Social History Marrital Status: Alcohol Use: Occasionally Uses Recreational Drug Use: No (SMOKES 1PPD) Smoking Status: Current Everyday Smoker Type Used: Cigarettes Recent Foreign Travel: No Contact w/other who traveled: No Recent Hopitalizations: No Recent Infectious Disease Expo: No Immunizations Up To Date Date of Pneumonia Vaccine: Mar 16, 2015 Date of Influenza Vaccine: Feb 16, 2018 Family Medical History Significant Family History: No Pertinent Family Hx Review of Systems (CHC) Constitutional: see HPI Reviewed Test Results Reviewed Test Results Lab Laboratory Tests Test 08/30/18 01:10 08/30/18 03:54 Range/Units White Blood Count 9.6 15.1 H 4.3-11.0 10^3/uL Red Blood Count 5.62 5.47 4.35-5.85 10^6/uL Hemoglobin 17.0 16.4 13.3-17.7 G/DL Hematocrit 48 48 40-54 % Mean Corpuscular Volume 86 88 80-99 FL Mean Corpuscular Hemoglobin 30 30 25-34 PG Mean Corpuscular Hemoglobin Concent 35 34 32-36 G/DL Red Cell Distribution Width 14.0 14.0 10.0-14.5 % Platelet Count 481 H 436 H 130-400 10^3/uL Mean Platelet Volume 8.7 8.5 7.4-10.4 FL Neutrophils (%) (Auto) 58 91 H 42-75 % Lymphocytes (%) (Auto) 33 9 L 12-44 % Monocytes (%) (Auto) 8 1 0-12 % Eosinophils (%) (Auto) 1 0 0-10 % Basophils (%) (Auto) 0 0 0-10 % Neutrophils # (Auto) 5.6 13.7 H 1.8-7.8 X 10^3 Lymphocytes # (Auto) 3.2 1.3 1.0-4.0 X 10^3 Monocytes # (Auto) 0.7 0.1 0.0-1.0 X 10^3 Eosinophils # (Auto) 0.1 0.0 0.0-0.3 10^3/uL Basophils # (Auto) 0.0 0.0 0.0-0.1 10^3/uL Sodium Level 140 141 135-145 MMOL/L Potassium Level 3.9 4.3 3.6-5.0 MMOL/L Chloride Level 107 109 H 98-107 MMOL/L Carbon Dioxide Level 18 L 20 L 21-32 MMOL/L Anion Gap 15 H 12 5-14 MMOL/L Blood Urea Nitrogen 8 7 7-18 MG/DL Creatinine 1.08 0.95 0.60-1.30 MG/DL Estimat Glomerular Filtration Rate > 60 > 60 BUN/Creatinine Ratio 7 7 Glucose Level 158 H 143 H 70-105 MG/DL Calcium Level 9.1 8.3 L 8.5-10.1 MG/DL Corrected Calcium 8.5-10.1 MG/DL Total Bilirubin 0.5 0.1-1.0 MG/DL Aspartate Amino Transf (AST/SGOT) 22 5-34 U/L Alanine Aminotransferase (ALT/SGPT) 20 0-55 U/L Alkaline Phosphatase 105 40-136 U/L Total Protein 7.5 6.4-8.2 GM/DL Albumin 4.7 H 3.2-4.5 GM/DL Neutrophils % (Manual) 89 % Lymphocytes % (Manual) 6 % Monocytes % (Manual) 2 % Band Neutrophils 3 % Blood Morphology Comment NORMAL Phosphorus Level 2.2 L 2.3-4.7 MG/DL Magnesium Level 2.0 1.8-2.4 MG/DL Physical Ex[facility] Physical Exam Vital Signs VS - Last 72 Hours, by Label 08/30/18 08/30/18 08/30/18 08/30/18 01:13 03:25 03:45 03:55 Temp 97.9 97.6 96.8 Pulse 72 80 82 81 Resp 14 18 12 B/P (MAP) 63/37 (46) 107/81 (90) 132/77 (95) Pulse Ox 94 94 98 O2 Delivery Room Air Nasal Cannula Nasal Cannula O2 Flow Rate 2.00 2.00 08/30/18 08/30/18 08/30/18 08/30/18 04:00 04:15 04:23 04:30 Pulse 81 84 87 Resp 12 16 16 B/P (MAP) 127/83 (98) 120/63 (82) 126/64 (84) Pulse Ox 98 97 99 95 O2 Delivery Nasal Cannula Nasal Cannula Nasal Cannula Nasal Cannula O2 Flow Rate 2.00 2.00 2.00 2.00 08/30/18 08/30/18 08/30/18 08/30/18 05:00 06:00 07:00 07:00 Pulse 84 82 90 92 Resp 16 18 21 B/P (MAP) 129/83 (98) 121/64 (83) 130/80 (97) Pulse Ox 94 92 92 O2 Delivery Nasal Cannula Nasal Cannula Nasal Cannula O2 Flow Rate 2.00 2.00 2.00 08/30/18 08/30/18 08/30/18 07:22 07:42 08:00 Temp 97.0 Pulse 91 Resp 18 B/P (MAP) 117/79 (92) Pulse Ox 97 O2 Delivery Nasal Cannula Nasal Cannula O2 Flow Rate 2.00 2.00 Capillary Refill : Less Than 3 Seconds General Appearance: no apparent distress HEENT: other (flacidity right side of face) Respiratory: lungs clear Cardiovascular: regular rate, rhythm Gastrointestinal: soft Rectal: deferred Extremities: no pedal edema Neurologic/Psychiatric: alert, oriented x 3 Skin: normal color Assessment/Plan Assessment/Plan Admission Dx 1. Syncopal episode due to hypotension most likely brought on by polypharmacy and alcohol 2. Saavedra's palsy Admission Status: Observation Reason for Inpatient Admission: Patient observed overnight to ensure that his syncopal episode improved. Also monitoring his blood pressure throughout the night. Assessment & Plan 1. Syncopal episode due to hypotension most likely brought on by polypharmacy and alcohol -Patient admitted under observation for cardiovascular monitoring -IV fluids given in the emergency department 2. Saavedra's palsy -Patient has Toradol and gabapentin prescribed through [facility] Clinical Quality Measures DVT/VTE Risk/Contraindication: Risk Factor Score Per Nursin RFS Level Per Nursing on Admit: 3=High MERLINE CHAU MD August 30, 2018 08:37
[2018-08-30] MEDS ORDERED: ASPIRIN 81 MG CHEW (CHILDREN'S ASA) PO SCH (09:00)
--- NOTE | 2018-08-30 10:00 | NUR ---
PT UP AND WALKING AROUND ROOM, ALREADY DRESSED HIMSELF AND REQUESTING D/C HOME. PT ATE 50% OF BREAKFAST W/O DIFFICULTY. DR CHAU NOTIFIED AND DC ORDERS RECEIVED.
--- NOTE | 2018-08-30 10:15 | NUR ---
SHIRA GREGG demonstrates understanding of discharge instructions and accurately returns instructions upon questioning. Copy of Post-Discharge Instructions and Medication Discharge Instructions given to PT. SHIRA GREGG is able to manage continuing needs after discharge. Patients belongings returned to PT. Skin dry and intact; no breakdown noted. Patient discharged from [facility] on 08/30/18 at 1015. SHIRA GREGG left floor via AMBULATION, accompanied by STAFF.
== END 2018-08-30 10:15 | disposition home or self-care (01) ==
LOC: EDUNIT# 01:13 → ER 01:14 → ICU 01:35
PROVIDERS: ADMIT Family Medicine; ATTEND Family Medicine
DX: I95.89 Other hypotension (principal); G51.0 Bell's palsy; G50.0 Trigeminal neuralgia; F17.210 Nicotine dependence, cigarettes, uncomplicated; Z79.82 Long term (current) use of aspirin; Z79.899 Other long term (current) drug therapy; I25.10 Atherosclerotic heart disease of native coronary artery without angina pectoris; J43.9 Emphysema, unspecified; I10 Essential (primary) hypertension; E78.00 Pure hypercholesterolemia, unspecified; N40.0 Benign prostatic hyperplasia without lower urinary tract symptoms; F32.9 Major depressive disorder, single episode, unspecified; Z86.010 Personal history of colon polyps; Z85.828 Personal history of other malignant neoplasm of skin
CPT/HCPCS: 36415; 80048; 80053; 83735; 84100; 85007; 85025; 85027; G0378

== ENCOUNTER → 2019-03-22 | Outpatient (CLI) | payer MEDICARE, MEDICAID ==
[~2019-03-22] MED LIST changes: -TIZA4TAB3 PO; +TIZA4TAB4 PO
--- NOTE | 2019-03-23 08:27 | Diagnostic Imaging Report ---
CT CHEST SCREENING WO TECHNIQUE: Low-dose unenhanced CT of the chest was performed according to the screening protocol. Coronal MIP and sagittal MPR reformats are created. Automatic exposure controls were utilized to keep dose as low as reasonably achievable. INDICATION: 63-year-old current smoker with [id number] history of smoking. COMPARISON: CT chest of 03/16/2018. FINDINGS: Pulmonary findings: No endoluminal nodule within the trachea. Moderate centrilobular emphysema is again seen. No concerning pulmonary nodule to suggest neoplasm. Stable calcified left lower lobe granuloma. Extrapulmonary findings: No pleural effusion. No supraclavicular or axillary lymphadenopathy. No mediastinal, hilar or juxtaphrenic lymphadenopathy. The heart is normal in size without pericardial effusion. There are few scattered coronary artery calcifications that are unchanged. Normal caliber thoracic aorta. Stable low-attenuation left adrenal nodule likely benign adenoma. IMPRESSION: 1. No change in screening lung CT to indicate clinically active lung cancer. 2. Emphysema. LUNG-RADS CATEGORY: 1 - Negative. MODIFIER: None. RECOMMENDATIONS: Continued annual screening with low-dose CT in 12 months. Dictated by: Dictated on workstation # [id number]
== END ==
LOC: RAD 16:03
PROVIDERS: ATTEND Nurse Practitioner Family
DX: Z12.2 Encounter for screening for malignant neoplasm of respiratory organs (principal); J43.9 Emphysema, unspecified; F17.210 Nicotine dependence, cigarettes, uncomplicated

== ENCOUNTER 2020-03-08 17:29 | Emergency (ER) | payer MEDICARE, MEDICAID ==
[~2020-03-08] VITALS: Ht 187.9 cm; Wt 86.1 kg
[~2020-03-08 17:29] MED LIST changes: +CLN.1T PO; -CLON0.1T PO; -MONT10TA24 PO; +MONT10TA26 PO; +SIMV40TA25 PO; -SIMV40TA4 PO
--- NOTE | 2020-03-08 17:39 | ED Chest Pain ---
General Stated Complaint: CHEST PAIN;SOA Source: patient Exam Limitations: no limitations History of Present Illness Date Seen by Provider: Mar 08, 2020 Time Seen by Provider: 17:37 Initial Comments To ER by EMS from home with reports of severe right-sided facial pain, chest pain x3 days, low back pain. Ran out of his hydrocodone on Friday (today is friday). He takes that for trigeminal neuralgia. He supplemented his pain management regimen with 1/2 pint of [place] today. He states he does not normally drink this much though old records show several admissions for alcoholism. Also reports weight loss of 20 pounds in 20 days Timing/Duration: changing over time Severity/Quality: severe Location: other Radiation: no radiation ASA po SHOE COVERER: No NTG SL SHOE COVERER: No Allergies and Home Medications Allergies Coded Allergies: ampicillin (Verified Allergy, Severe, BLACK TONGUE. , 07/03/18) Home Medications Albuterol Sulfate 18 Gm Hfa.aer.ad, 1-2 PUFF INH TID PRN for SHORTNESS OF BREATH, (Reported) Aspirin 81 Mg Tablet.dr, 81 MG PO DAILY, (Reported) Bupropion HCl 150 Mg Tablet.er, 150 MG PO BID, (Reported) Carvedilol 12.5 Mg Tablet, 12.5 MG PO BID, (Reported) Clonidine HCl 0.1 Mg Tablet, 0.1 MG PO BID, (Reported) Doxazosin Mesylate 2 Mg Tablet, 0.5 TAB PO DAILY, (Reported) Ipratropium/Albuterol Sulfate 3 Ml Ampul.neb, 3 ML IH QID PRN for SHORTNESS OF BREATH Prescribed by: RAMIN RICHARDS on 07/03/18 1310 Lisinopril 40 Mg Tablet, 40 MG PO DAILY, (Reported) Montelukast Sodium 10 Mg Tablet, 10 MG PO HS, (Reported) Simvastatin 40 Mg Tablet, 40 MG PO HS, (Reported) Tizanidine HCl 4 Mg Tablet, 4 MG PO HS, (Reported) Umeclidinium Brm/Vilanterol Tr 1 Each Blst.w.dev, 1 EACH IH DAILY, (Reported) Zolpidem Tartrate 5 Mg Tablet, 5 MG PO HS, (Reported) Patient Home Medication List Home Medication List Reviewed: Yes Review of Systems Review of Systems Constitutional: see HPI EENTM: No Symptoms Reported Respiratory: No Symptoms Reported Cardiovascular: No Symptoms Reported Gastrointestinal: No Symptoms Reported Genitourinary: No Symptoms Reported Musculoskeletal: no symptoms reported Skin: no symptoms reported Psychiatric/Neurological: No Symptoms Reported Endocrine: No Symptoms Reported Hematologic/Lymphatic: No Symptoms Reported Past Xgnbfsk-Wexmau-Nsgspu Hx Patient Social History Alcohol Beverage of Choice: Wine, Vodka Type Used: Cigarettes Recent Hopitalizations: No Immunizations Up To Date Date of Pneumonia Vaccine: Mar 16, 2015 Date of Influenza Vaccine: Feb 16, 2018 Seasonal Allergies Seasonal Allergies: No Past Medical History Surgeries: Yes Cardiac, Renal Respiratory: Yes (WEARS O2 2L NOC) COPD, Emphysema Cardiac: Yes Coronary Artery Disease, High Cholesterol, Hypertension Neurological: No (Saaevdra's Palsy) Reproductive Disorders: No Sexually Transmitted Disease: No HIV/AIDS: No Genitourinary: Yes Benign Prostatic Hyperpl, Kidney Stones Gastrointestinal: Yes (COLONOSCOPY 02/2018-POLYPECTOMY, DIVERTICULAR DISEASE NOTED) Diverticulosis, Polyps Musculoskeletal: No Endocrine: No HEENT: Yes Cancer: Yes (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) Skin Did You Recieve Any Treatments: Yes What Type of Treatment Did You: Surgical Intervention Psychosocial: Yes Depression Integumentary: No Blood Disorders: No Adverse Reaction/Blood Tranf: No (N/A) Family Medical History No Pertinent Family Hx Physical Exam Vital Signs Capillary Refill : Height, Weight, BMI Height: 6'2.00" Weight: 230lbs. 2.0oz. 104.110628om; 29.6 BMI Method:Stated General Appearance: No Apparent Distress, WD/WN HEENT: PERRL/EOMI, TMs Normal, Other (right facial drooping) Respiratory: Normal Breath Sounds, No Accessory Muscle Use, No Respiratory Distress Gastrointestinal: Non Tender, Soft Neurologic/Psychiatric: Alert, Other (Quite unpleasant, yelling at staff, belligerent demanding pain medication) Skin: Normal Color, Warm/Dry Progress/Results/Core Measures Results/Orders Lab Results Laboratory Tests Test 03/08/20 17:37 03/08/20 18:15 Range/Units White Blood Count 13.6 H 4.3-11.0 10^3/uL Red Blood Count 5.31 4.30-5.52 10^6/uL Hemoglobin 16.3 13.3-17.7 g/dL Hematocrit 48 40-54 % Mean Corpuscular Volume 90 80-99 fL Mean Corpuscular Hemoglobin 31 25-34 pg Mean Corpuscular Hemoglobin Concent 34 32-36 g/dL Red Cell Distribution Width 12.4 10.0-14.5 % Platelet Count 474 H 130-400 10^3/uL Mean Platelet Volume 8.4 L 9.0-12.2 fL Immature Granulocyte % (Auto) 1 % Neutrophils (%) (Auto) 72 42-75 % Lymphocytes (%) (Auto) 18 12-44 % Monocytes (%) (Auto) 9 0-12 % Eosinophils (%) (Auto) 1 0-10 % Basophils (%) (Auto) 0 0-10 % Neutrophils # (Auto) 9.8 H 1.8-7.8 10^3/uL Lymphocytes # (Auto) 2.5 1.0-4.0 10^3/uL Monocytes # (Auto) 1.2 H 0.0-1.0 10^3/uL Eosinophils # (Auto) 0.1 0.0-0.3 10^3/uL Basophils # (Auto) 0.1 0.0-0.1 10^3/uL Immature Granulocyte # (Auto) 0.1 0.0-0.1 10^3/uL Prothrombin Time 12.4 12.2-14.7 SEC INR Comment 0.9 0.8-1.4 Activated Partial Thromboplast Time 28 24-35 SEC Sodium Level 137 135-145 MMOL/L Potassium Level 3.9 3.6-5.0 MMOL/L Chloride Level 98 98-107 MMOL/L Carbon Dioxide Level 20 L 21-32 MMOL/L Anion Gap 19 H 5-14 MMOL/L Blood Urea Nitrogen 9 7-18 MG/DL Creatinine 0.81 0.60-1.30 MG/DL Estimat Glomerular Filtration Rate > 60 BUN/Creatinine Ratio 11 Glucose Level 117 H 70-105 MG/DL Calcium Level 9.9 8.5-10.1 MG/DL Corrected Calcium 9.6 8.5-10.1 MG/DL Magnesium Level 2.1 1.6-2.4 MG/DL Total Bilirubin 0.2 0.1-1.0 MG/DL Aspartate Amino Transf (AST/SGOT) 25 5-34 U/L Alanine Aminotransferase (ALT/SGPT) 7 0-55 U/L Alkaline Phosphatase 109 40-136 U/L Myoglobin 16.6 10.0-92.0 NG/ML Troponin I < 0.028 <0.028 NG/ML Total Protein 7.6 6.4-8.2 GM/DL Albumin 4.4 3.2-4.5 GM/DL Serum Alcohol 169 H <10 MG/DL Urine Color YELLOW Urine Clarity CLEAR Urine pH 6.5 5-9 Urine Specific [place] <=1.005 1.016-1.022 Urine Protein NEGATIVE NEGATIVE Urine Glucose (UA) NEGATIVE NEGATIVE Urine Ketones NEGATIVE NEGATIVE Urine Nitrite NEGATIVE NEGATIVE Urine Bilirubin NEGATIVE NEGATIVE Urine Urobilinogen 0.2 < = 1.0 MG/DL Urine Leukocyte Esterase NEGATIVE NEGATIVE Urine RBC (Auto) 1+ H NEGATIVE Urine RBC RARE /HPF Urine WBC NONE /HPF Urine Squamous Epithelial Cells RARE /HPF Urine Crystals NONE /LPF Urine Bacteria NEGATIVE /HPF Urine Casts NONE /LPF Urine Mucus NEGATIVE /LPF Urine Culture Indicated NO Urine Opiates Screen POSITIVE H NEGATIVE Urine Oxycodone Screen NEGATIVE NEGATIVE Urine Methadone Screen NEGATIVE NEGATIVE Urine Propoxyphene Screen NEGATIVE NEGATIVE Urine Barbiturates Screen NEGATIVE NEGATIVE Ur Tricyclic Antidepressants Screen NEGATIVE NEGATIVE Urine Phencyclidine Screen NEGATIVE NEGATIVE Urine Amphetamines Screen NEGATIVE NEGATIVE Urine Methamphetamines Screen NEGATIVE NEGATIVE Urine Benzodiazepines Screen NEGATIVE NEGATIVE Urine Cocaine Screen NEGATIVE NEGATIVE Urine Cannabinoids Screen NEGATIVE NEGATIVE My Orders Orders - BASIM ALONZO APRN Cbc With Automated Diff (03/08/20 17:36) Magnesium (03/08/20 17:36) Chest 1 View, Ap/Pa Only (03/08/20 17:36) Ekg Tracing (03/08/20 17:36) Comprehensive Metabolic Panel (03/08/20 17:36) Myoglobin Serum (03/08/20 17:36) Protime With Inr (03/08/20 17:36) Partial Thromboplastin Time (03/08/20 17:36) O2 (03/08/20 17:36) Monitor-Rhythm Ecg Trace Only (03/08/20 17:36) Lipid Panel (03/09/20 06:00) Ed Iv/Invasive Line Start (03/08/20 17:36) Troponin I (03/08/20 17:36) Aspirin Chewable Tablet (Baby Aspirin Ch (03/08/20 17:45) Ketamine Syringe (Ed Only) (Ketamine Syr (03/08/20 17:45) Ns (Ivpb) (Sodium Chloride 0.9%) (03/08/20 17:45) Alcohol (03/08/20 17:40) Ua Culture If Indicated (03/08/20 17:40) Drug Screen Stat (Urine) (03/08/20 17:40) Medications Given in ED Current Medications Medications Dose Ordered Sig/Sandra Route Start Time Stop Time Status Last Admin Dose Admin Ketamine HCl 25 mg ONCE ONCE IV 03/08/20 17:45 03/08/20 17:46 DC 03/08/20 17:47 12.5 MG Sodium Chloride 250 ml @ 999 mls/hr Q16M ONCE IV 03/08/20 17:45 03/08/20 18:00 DC 03/08/20 17:48 999 MLS/HR Departure Communication (Admissions) 1831-Much more pleasant after 25mg IV ketamine and his pain is much better as well. Now hes very appreciative of our care and requests that I let him go home. Impression Primary Impression: Trigeminal neuralgia of right side of face Additional Impressions: Saavedra's palsy Alcoholism Disposition: 01 HOME, SELF-CARE Condition: Stable Departure-Patient Inst. Referrals: [facility] (PCP/Family) Primary Care Physician Patient Instructions: Acute Pain, Adult (DC) BASIM ALONZO TIMBER INSPECTOR Mar 08, 2020 17:39
[2020-03-08] MEDS ORDERED: NS (IVPB) 250 ML IV ONE (17:45)
[2020-03-08] MEDS ORDERED: KETAMINE/NaCl 50 MG/5 ML SYRINGE (ED ONLY) IV ONE (17:45)
[2020-03-08] MEDS ORDERED: ASPIRIN 81 MG CHEW (CHILDREN'S ASA) PO ONE (17:45)
[2020-03-08 17:48] LABS: BASOPHILS # (AUTO) 0.1 10^3/uL (0.0-0.1); BASOPHILS % (AUTO) 0 % (0-10); EOSINOPHILS # (AUTO) 0.1 10^3/uL (0.0-0.3); EOSINOPHILS % (AUTO) 1 % (0-10); HEMATOCRIT 48 % (40-54); HEMOGLOBIN 16.3 g/dL (13.3-17.7); LYMPHOCYTES # (AUTO) 2.5 10^3/uL (1.0-4.0); LYMPHOCYTES % (AUTO) 18 % (12-44); MEAN CORPUSCULAR HEMOGLOBIN 31 pg (25-34); MEAN CORPUSCULAR HGB CONC 34 g/dL (32-36); MEAN CORPUSCULAR VOLUME 90 fL (80-99); MEAN PLATELET VOLUME 8.4 fL (9.0-12.2); MONOCYTES # (AUTO) 1.2 10^3/uL (0.0-1.0); MONOCYTES % (AUTO) 9 % (0-12); NEUTROPHILS # (AUTO) 9.8 10^3/uL (1.8-7.8); NEUTROPHILS % (AUTO) 72 % (42-75); PLATELET COUNT 474 10^3/uL (130-400); WHITE BLOOD COUNT 13.6 10^3/uL (4.3-11.0)
[2020-03-08 17:59] LABS: INR 0.9 (0.8-1.4); PROTHROMBIN TIME PATIENT 12.4 SEC (12.2-14.7)
[2020-03-08 18:02] LABS: ALBUMIN 4.4 GM/DL (3.2-4.5)
[2020-03-08 18:03] LABS: CHLORIDE 98 MMOL/L (98-107); POTASSIUM 3.9 MMOL/L (3.6-5.0); SODIUM 137 MMOL/L (135-145)
[2020-03-08 18:04] LABS: CALCIUM 9.9 MG/DL (8.5-10.1)
[2020-03-08 18:05] LABS: GLUCOSE 117 MG/DL (70-105); TOTAL PROTEIN 7.6 GM/DL (6.4-8.2)
[2020-03-08 18:06] LABS: CARBON DIOXIDE 20 MMOL/L (21-32)
[2020-03-08 18:07] LABS: BILIRUBIN,TOTAL 0.2 MG/DL (0.1-1.0)
[2020-03-08 18:09] LABS: ALKALINE PHOSPHATASE 109 U/L (40-136); CREATININE SERUM 0.81 MG/DL (0.60-1.30); GFR ESTIMATED > 60
[2020-03-08 18:10] LABS: BUN/CREATININE RATIO 11
[2020-03-08 18:12] LABS: ALANINE AMINOTRANSFERASE 7 U/L (0-55); MAGNESIUM 2.1 MG/DL (1.6-2.4)
--- NOTE | 2020-03-08 18:14 | Diagnostic Imaging Report ---
INDICATION: Chest pain, short of air Upright chest shows normal heart size and vascularity. There is obstructive airway disease with no mass or infiltrate seen. There is no effusion or pneumothorax. There is no bony abnormality. IMPRESSION: COPD. There is no change from 07/03/2018. Dictated by: Dictated on workstation # [id number]
[2020-03-08 18:21] LABS: BILIRUBIN,URINE NEGATIVE (NEGATIVE); CLARITY,URINE CLEAR; COLOR,URINE YELLOW; GLUCOSE, URINE (UA) NEGATIVE (NEGATIVE); KETONES,URINE NEGATIVE (NEGATIVE); LEUKOCYTE ESTERASE ,URINE NEGATIVE (NEGATIVE); NITRITE,URINE NEGATIVE (NEGATIVE); PH,URINE 6.5 (5-9); PROTEIN,URINE NEGATIVE (NEGATIVE)
[2020-03-08 18:30] LABS: BACTERIA,URINE NEGATIVE /HPF; RBC,URINE RARE /HPF; SQUAMOUS EPITHELIAL CELL,UR RARE /HPF
[2020-03-08 18:36] LABS: AMPHETAMINE SCREEN, URINE NEGATIVE (NEGATIVE); BARBITURATE SCREEN URINE NEGATIVE (NEGATIVE); BENZODIAZEPINES SCREEN URINE NEGATIVE (NEGATIVE); CANNABINOID SCREEN, URINE NEGATIVE (NEGATIVE); COCAINE SCREEN URINE NEGATIVE (NEGATIVE); METHADONE STAT NEGATIVE (NEGATIVE); METHAMPHETAMINE SCREEN URINE S NEGATIVE (NEGATIVE); OPIATE SCREEN URINE POSITIVE (NEGATIVE); OXYCODONE STAT NEGATIVE (NEGATIVE); PROPOXYPHENE STAT NEGATIVE (NEGATIVE); TRICYCLIC ANTIDEPRESSANTS SCRE NEGATIVE (NEGATIVE)
[2020-03-08 18:40] VITALS: BP 136/83
== END 2020-03-08 18:30 | disposition home or self-care (01) ==
LOC: EDUNIT# 17:29 → ER 17:30
DX: F10.20 Alcohol dependence, uncomplicated (principal); G51.0 Bell's palsy; G50.0 Trigeminal neuralgia; T40.2X6A Underdosing of other opioids, initial encounter; M54.5 Low back pain; F32.9 Major depressive disorder, single episode, unspecified; I10 Essential (primary) hypertension; I25.10 Atherosclerotic heart disease of native coronary artery without angina pectoris; E78.00 Pure hypercholesterolemia, unspecified; J43.9 Emphysema, unspecified; Z91.14 Patient's other noncompliance with medication regimen; Z79.891 Long term (current) use of opiate analgesic; Z85.828 Personal history of other malignant neoplasm of skin; Z88.1 Allergy status to other antibiotic agents; Z79.82 Long term (current) use of aspirin; Z79.51 Long term (current) use of inhaled steroids; Z87.438 Personal history of other diseases of male genital organs; Z87.442 Personal history of urinary calculi
CPT/HCPCS: 71045; 80053; 80306; 81000; 83735; 83874; 84484; 85025; 85610; 85730; 93005; 93041; 99284; G0480; 36415; 80320

== ENCOUNTER 2020-04-20 12:37 | Emergency (ER) | payer MEDICARE, MEDICAID ==
[~2020-04-20] VITALS: Ht 187.9 cm; Wt 71.6 kg
[~2020-04-20 12:37] MED LIST changes: -MONT10TA26 PO; +MONT10TA97 PO
--- NOTE | 2020-04-20 12:51 | ED EENT ---
History of Present Illness General Stated Complaint: ABNORMAL LABS Source: patient, EMS Exam Limitations: no limitations History of Present Illness Date Seen by Provider: Apr 20, 2020 Time Seen by Provider: 12:48 Initial Comments To ER by EMS from home with reports of weight loss and general weakness. He follows with [facility] Deisy Rutledge who checked some labs on him recently. He has a right-sided Saavedra's palsy with trigeminal neuralgia type pain that he describes as "icy hot" both to the right side of the forehead and the right cheek. He states that it comes and goes. Because of his general weakness and his difficulty with eating secondary to pain he is lost 30 pounds in 3 months. He has seen Dr. Ortega from neurosurgery and an equity research analyst in [place]. Nothing has been particularly helpful. On his recent laboratory evaluation according to Deisy Rutledge his CRP was 90 his sed rate was 80 and a white count of 17. He has COPD and continues to smoke and is an alcoholic. He reports intermittent blurred vision but states that his right eye is his good eye. Timing/Duration: this morning Severity: moderate Associated Symptoms: cough Allergies and Home Medications Allergies Coded Allergies: ampicillin (Verified Allergy, Severe, BLACK TONGUE. , 07/03/18) Home Medications Albuterol Sulfate 18 Gm Hfa.aer.ad, 1-2 PUFF INH TID PRN for SHORTNESS OF BREATH, (Reported) Aspirin 81 Mg Tablet.dr, 81 MG PO DAILY, (Reported) Bupropion HCl 150 Mg Tablet.er, 150 MG PO BID, (Reported) Carvedilol 12.5 Mg Tablet, 12.5 MG PO BID, (Reported) Clonidine HCl 0.1 Mg Tablet, 0.1 MG PO BID, (Reported) Doxazosin Mesylate 2 Mg Tablet, 0.5 TAB PO DAILY, (Reported) Ipratropium/Albuterol Sulfate 3 Ml Ampul.neb, 3 ML IH QID PRN for SHORTNESS OF BREATH Prescribed by: RAMIN RICHARDS on 07/03/18 1310 Lisinopril 40 Mg Tablet, 40 MG PO DAILY, (Reported) Montelukast Sodium 10 Mg Tablet, 10 MG PO HS, (Reported) Simvastatin 40 Mg Tablet, 40 MG PO HS, (Reported) Tizanidine HCl 4 Mg Tablet, 4 MG PO HS, (Reported) Umeclidinium Brm/Vilanterol Tr 1 Each Blst.w.dev, 1 EACH IH DAILY, (Reported) Zolpidem Tartrate 5 Mg Tablet, 5 MG PO HS, (Reported) Patient Home Medication List Home Medication List Reviewed: Yes Review of Systems Review of Systems Constitutional: see HPI; No chills, No fever; weakness Eyes: No Symptoms Reported Ears: No Symptoms Reported Nose: no symptoms reported Mouth: no symptoms reported Throat: no symptoms reported Respiratory: no symptoms reported Cardiovascular: no symptoms reported Musculoskeletal: no symptoms reported Past Pfbfhhz-Erfqmc-Yeaqrm Hx Patient Social History Alcohol Beverage of Choice: Wine, Vodka Type Used: Cigarettes Recent Hopitalizations: No Immunizations Up To Date Date of Pneumonia Vaccine: Mar 16, 2015 Date of Influenza Vaccine: Feb 16, 2018 Seasonal Allergies Seasonal Allergies: No Past Medical History Surgeries: Yes Cardiac, Ear Surgery, Renal Respiratory: Yes (WEARS O2 2L NOC) COPD, Emphysema Cardiac: Yes Coronary Artery Disease, High Cholesterol, Hypertension Neurological: 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) Reproductive Disorders: No Sexually Transmitted Disease: No HIV/AIDS: No Genitourinary: Yes Benign Prostatic Hyperpl, Kidney Stones Gastrointestinal: Yes (COLONOSCOPY 02/2018-POLYPECTOMY, DIVERTICULAR DISEASE NOTED) Diverticulosis, Polyps Musculoskeletal: No Endocrine: No HEENT: Yes Cancer: Yes (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 2.0oz. 104.307172ep; 24.00 BMI Method:Stated General Appearance: WD/WN, no apparent distress, other (Alert oriented thin no distress obvious drooping of the right side of the face.) Eyes: right eye normal inspection (Drooping of the eyelid); bilateral eye PERRL, bilateral eye EOMI Ears: bilateral ear auricle normal, bilateral ear canal normal, bilateral ear TM normal Mouth/Throat: normal mouth inspection, pharynx normal Neck: non-tender, full range of motion Respiratory: no respiratory distress, no accessory muscle use Gastrointestinal: normal bowel sounds, non tender Neurologic/Psychiatric: alert, normal mood/affect, oriented x 3 Skin: normal color, warm/dry Progress/Results/Core Measures Results/Orders Lab Results Laboratory Tests Test 04/20/20 12:48 04/20/20 14:00 Range/Units White Blood Count 16.3 H 4.3-11.0 10^3/uL Red Blood Count 5.37 4.30-5.52 10^6/uL Hemoglobin 15.8 13.3-17.7 g/dL Hematocrit 48 40-54 % Mean Corpuscular Volume 89 80-99 fL Mean Corpuscular Hemoglobin 29 25-34 pg Mean Corpuscular Hemoglobin Concent 33 32-36 g/dL Red Cell Distribution Width 12.5 10.0-14.5 % Platelet Count 416 H 130-400 10^3/uL Mean Platelet Volume 9.1 9.0-12.2 fL Immature Granulocyte % (Auto) 1 % Neutrophils (%) (Auto) 75 42-75 % Lymphocytes (%) (Auto) 16 12-44 % Monocytes (%) (Auto) 8 0-12 % Eosinophils (%) (Auto) 0 0-10 % Basophils (%) (Auto) 0 0-10 % Neutrophils # (Auto) 12.2 H 1.8-7.8 10^3/uL Lymphocytes # (Auto) 2.5 1.0-4.0 10^3/uL Monocytes # (Auto) 1.4 H 0.0-1.0 10^3/uL Eosinophils # (Auto) 0.0 0.0-0.3 10^3/uL Basophils # (Auto) 0.1 0.0-0.1 10^3/uL Immature Granulocyte # (Auto) 0.2 H 0.0-0.1 10^3/uL Neutrophils % (Manual) 74 % Lymphocytes % (Manual) 14 % Monocytes % (Manual) 10 % Myelocytes % 1 % Band Neutrophils 1 % Blood Morphology Comment NORMAL Erythrocyte Sedimentation Rate 37 H 0-30 MM/HR Prothrombin Time 13.9 12.2-14.7 SEC INR Comment 1.0 0.8-1.4 Sodium Level 134 L 135-145 MMOL/L Potassium Level 3.8 3.6-5.0 MMOL/L Chloride Level 93 L 98-107 MMOL/L Carbon Dioxide Level 24 21-32 MMOL/L Anion Gap 17 H 5-14 MMOL/L Blood Urea Nitrogen 26 H 7-18 MG/DL Creatinine 1.11 0.60-1.30 MG/DL Estimat Glomerular Filtration Rate > 60 BUN/Creatinine Ratio 23 Glucose Level 149 H 70-105 MG/DL Calcium Level 12.9 H 8.5-10.1 MG/DL Corrected Calcium 12.6 H 8.5-10.1 MG/DL Magnesium Level 2.0 1.6-2.4 MG/DL Total Bilirubin 0.5 0.1-1.0 MG/DL Aspartate Amino Transf (AST/SGOT) 65 H 5-34 U/L Alanine Aminotransferase (ALT/SGPT) 11 0-55 U/L Alkaline Phosphatase 157 H 40-136 U/L C-Reactive Protein High Sensitivity 15.13 H 0.00-0.50 MG/DL Total Protein 8.0 6.4-8.2 GM/DL Albumin 4.4 3.2-4.5 GM/DL Procalcitonin 0.21 H <0.10 NG/ML Thyroid Stimulating Hormone (TSH) 0.85 0.35-4.94 UIU/ML Serum Alcohol < 10 <10 MG/DL Urine Color YELLOW Urine Clarity CLEAR Urine pH 5.5 5-9 Urine Specific [place] 1.025 H 1.016-1.022 Urine Protein NEGATIVE NEGATIVE Urine Glucose (UA) NEGATIVE NEGATIVE Urine Ketones NEGATIVE NEGATIVE Urine Nitrite NEGATIVE NEGATIVE Urine Bilirubin NEGATIVE NEGATIVE Urine Urobilinogen 0.2 < = 1.0 MG/DL Urine Leukocyte Esterase NEGATIVE NEGATIVE Urine RBC (Auto) 1+ H NEGATIVE Urine RBC 2-5 H /HPF Urine WBC RARE /HPF Urine Squamous Epithelial Cells NONE /HPF Urine Crystals NONE /LPF Urine Bacteria NEGATIVE /HPF Urine Casts PRESENT /LPF Urine Hyaline Casts 2-5 H /LPF Urine Mucus SMALL H /LPF Urine Culture Indicated NO Urine Opiates Screen POSITIVE H NEGATIVE Urine Oxycodone Screen NEGATIVE NEGATIVE Urine Methadone Screen NEGATIVE NEGATIVE Urine Propoxyphene Screen NEGATIVE NEGATIVE Urine Barbiturates Screen NEGATIVE NEGATIVE Ur Tricyclic Antidepressants Screen NEGATIVE NEGATIVE Urine Phencyclidine Screen NEGATIVE NEGATIVE Urine Amphetamines Screen NEGATIVE NEGATIVE Urine Methamphetamines Screen NEGATIVE NEGATIVE Urine Benzodiazepines Screen NEGATIVE NEGATIVE Urine Cocaine Screen NEGATIVE NEGATIVE Urine Cannabinoids Screen NEGATIVE NEGATIVE My Orders Orders - BASIM ALONZO APRN Cbc With Automated Diff (04/20/20 12:46) Comprehensive Metabolic Panel (04/20/20 12:46) Erythrocyte Sedimentation Rate (04/20/20 12:46) Hs C Reactive Protein (04/20/20 12:46) Ua Culture If Indicated (04/20/20 12:46) Drug Screen Stat (Urine) (04/20/20 12:46) Alcohol (04/20/20 12:46) Chest 1 View, Ap/Pa Only (04/20/20 12:46) Ed Iv/Invasive Line Start (04/20/20 12:46) Thyroid Stimulating Hormone (04/20/20 12:46) Magnesium (04/20/20 12:46) Protime With Inr (04/20/20 12:46) Manual Differential (04/20/20 12:48) Procalcitonin (Pct) (04/20/20 13:23) Lactated Ringers (Lr 1000 Ml Iv Solution (04/20/20 13:30) Hydrocodone/Apap 5/325 Tablet (Lortab 5 (04/20/20 14:00) Ns Iv 1000 Ml (Sodium Chloride 0.9%) (04/20/20 14:00) Methylprednisolone Sod Succ (Solu-Medrol (04/20/20 14:45) Ceftriaxone For Iv Use (Rocephin For I (04/20/20 14:45) Ketamine Syringe (Ed Only) (Ketamine Syr (04/20/20 14:45) Ct Chest/Abdomen/Pelvis W (04/20/20 14:46) Iohexol Injection (Omnipaque 350 Mg/Ml 1 (04/20/20 15:00) Received Contrast (Hold Metformin- Contr (04/20/20 15:00) Ns (Ivpb) (Sodium Chloride 0.9% Ivpb Bag (04/20/20 15:00) Medications Given in ED Current Medications Medications Dose Ordered Sig/Sandra Route Start Time Stop Time Status Last Admin Dose Admin Acetaminophen/ Hydrocodone Bitart 1 tab ONCE ONCE PO 04/20/20 14:00 04/20/20 14:01 DC 04/20/20 14:05 1 TAB Ceftriaxone Sodium 1000 mg/ Sterile Water 10 ml @ 200 mls/hr ONCE ONCE IV 04/20/20 14:45 04/20/20 14:47 DC 04/20/20 14:46 200 MLS/HR Iohexol 100 ml ONCE ONCE IV 04/20/20 15:00 04/20/20 15:01 DC 04/20/20 15:13 88 ML Ketamine HCl 25 mg ONCE ONCE IV 04/20/20 14:45 04/20/20 14:46 DC 04/20/20 14:46 25 MG Methylprednisolone Sodium Succinate 125 mg ONCE ONCE IVP 04/20/20 14:45 04/20/20 14:46 DC 04/20/20 14:46 125 MG Sodium Chloride 100 ml ONCE ONCE IV 04/20/20 15:00 04/20/20 15:01 DC 04/20/20 15:14 80 ML Vital Signs/I&O 04/20/20 12:42 Pulse 120 Resp 18 B/P (MAP) 144/94 (111) Pulse Ox 96 O2 Delivery Room Air Diagnostic Imaging Diagonstic Imaging: CT Comments NAME: SHIRA GREGG [facility] REC#: [id number] PT STATUS: REG ER : 1955 PHYSICIAN: BASIM ALONZO APRN ADMIT DATE: 04/20/20/ER Draft Date of Exam:04/20/20 CT CHEST/ABDOMEN/PELVIS W INDICATION: 30 pound weight loss and abdominal and back pain. TECHNIQUE: Multiple contiguous axial images were obtained through the chest, abdomen, and pelvis after the administration of intravenous contrast. Auto Exposure Controls were utilized during the CT exam to meet ALARA standards for radiation dose reduction. CT chest is compared to 03/22/2019. CT abdomen and pelvis has no previous study for comparison. CT chest findings: There are no enlarged mediastinal or hilar nodes. There are no enlarged axillary nodes or chest wall lesions. There is no pleural or pericardial fluid. Bony windows in the chest demonstrate an erosive lesion of the left 11th rib centrally, with bony destruction. There appear to be old bilateral rib fractures on both sides. There is a compression fracture with some underlying sclerosis at T5. Lung parenchymal windows demonstrate diffuse emphysematous changes. There are bilateral pulmonary nodules which were not present on the previous chest CT of 03/22/2019. There is a nodule in the right upper lobe, measuring 6 mm, best seen on image 11 of series 2. There are a couple small lesions in the right lung. There is a lesion in the left upper lobe, measuring 12 mm in diameter, best seen on image 26 series 2. There is an additional left upper lobe lesion on image 22 series 2, measuring about 9 mm. There is a smaller lesion in the left upper lobe more inferiorly. CT abdomen/pelvis findings: The liver shows no focal lesion. Gallbladder appears normal. The spleen and kidneys appear normal except for small cysts in the left kidney. The pancreas appears normal. The right adrenal appears normal. The left adrenal shows a mass measuring about 4.4 cm. This previously measured 3.8 cm on 03/16/2018. There is no retroperitoneal mass or adenopathy. There is no ascites or abnormal fluid collection. There is no pelvic mass or lymphadenopathy. There is no sign of bowel obstruction. There is inhomogeneity of the bony structures in the lumbar spine, raising the possibility of metastatic disease. There is a lytic lesion of L2 anteriorly with apparent pathologic fracture. Recommend MRI lumbar spine for further evaluation. There is also a compression fracture with some sclerosis at T5. IMPRESSION: 1. CT chest demonstrates emphysematous changes. There are multiple pulmonary nodules present which were not seen on prior study of 03/22/2019 and may represent neoplastic disease. There is a destructive bony lesion of the medial portion of the left 11th rib which may be metastatic. There is a T5 compression fracture with some sclerosis, which may represent a pathologic fracture, this was not present on 03/22/2019. Consider MRI thoracic spine for further evaluation. 2. CT abdomen and pelvis demonstrates a left adrenal mass which has increased in size compared to the prior study. This may represent metastatic disease or adenoma. There is an incidental cyst in the right kidney. There is diffuse inhomogeneity of the lumbar vertebrae with a suspicious pathologic compression fracture of L2. Recommend MRI for a more complete evaluation. Dictated on workstation # [id number] Dict: 04/20/20 1530 Trans: 04/20/20 1601 [facility] [id number] Interpreted by: OFE ELLINGTON MD Electronically signed by: Departure Communication (Admissions) [id number]-complains of pain to the right side of his torso but no pain with palpation. He states it is just achy. His procalcitonin is a little elevated, inflammatory markers are little high here though not as high as measured at [facility] yesterday. I will give him some Solu-Medrol. For this pain will give ketamine as that worked very well for him last time. He would prefer to go home, he does not want to stay in the hospital. 1609-after the ketamine infusion he feels much better in regards to his pain. I discussed with him the CT findings of likely metastatic disease. This would support his weight loss and poor appetite. I did offer him admission to the hospital to help expedite work-up. He states he handles pretty well at home and would like to go on home and will follow up with [facility] next week. Impression Primary Impression: Trigeminal neuralgia of right side of face Additional Impression: Metastatic cancer Disposition: HOME, SELF-CARE Condition: Stable Departure-Patient Inst. Decision time for Depature: 16:10 Referrals: [facility] (PCP/Family) Primary Care Physician Patient Instructions: Acute Pain, Adult Add. Discharge Instructions: 1. The CT findings today are suspicious for a cancer that has spread to some of your ribs and bone as well as lung. This warrants close follow-up with [facility] first of next week. Return to ER for any worsening symptoms or any other concerns. Copy Copies To 1: KRISTINA VILLANUEVA PETER J APRN Apr 20, 2020 12:51
[2020-04-20 12:57] LABS: BASOPHILS # (AUTO) 0.1 10^3/uL (0.0-0.1); BASOPHILS % (AUTO) 0 % (0-10); EOSINOPHILS % (AUTO) 0 % (0-10); HEMATOCRIT 48 % (40-54); HEMOGLOBIN 15.8 g/dL (13.3-17.7); LYMPHOCYTES # (AUTO) 2.5 10^3/uL (1.0-4.0); LYMPHOCYTES % (AUTO) 16 % (12-44); MEAN CORPUSCULAR HEMOGLOBIN 29 pg (25-34); MEAN CORPUSCULAR HGB CONC 33 g/dL (32-36); MEAN CORPUSCULAR VOLUME 89 fL (80-99); MEAN PLATELET VOLUME 9.1 fL (9.0-12.2); MONOCYTES # (AUTO) 1.4 10^3/uL (0.0-1.0); MONOCYTES % (AUTO) 8 % (0-12); NEUTROPHILS # (AUTO) 12.2 10^3/uL (1.8-7.8); NEUTROPHILS % (AUTO) 75 % (42-75); PLATELET COUNT 416 10^3/uL (130-400); WHITE BLOOD COUNT 16.3 10^3/uL (4.3-11.0)
[2020-04-20 13:09] LABS: ALBUMIN 4.4 GM/DL (3.2-4.5); CHLORIDE 93 MMOL/L (98-107); POTASSIUM 3.8 MMOL/L (3.6-5.0); PROTHROMBIN TIME PATIENT 13.9 SEC (12.2-14.7); SODIUM 134 MMOL/L (135-145)
[2020-04-20 13:11] LABS: CALCIUM 12.9 MG/DL (8.5-10.1)
[2020-04-20 13:12] LABS: GLUCOSE 149 MG/DL (70-105)
[2020-04-20 13:13] LABS: CARBON DIOXIDE 24 MMOL/L (21-32)
[2020-04-20 13:14] LABS: BILIRUBIN,TOTAL 0.5 MG/DL (0.1-1.0)
[2020-04-20 13:15] LABS: ALKALINE PHOSPHATASE 157 U/L (40-136)
[2020-04-20 13:16] LABS: CREATININE SERUM 1.11 MG/DL (0.60-1.30); GFR ESTIMATED > 60
[2020-04-20 13:17] LABS: BUN/CREATININE RATIO 23
[2020-04-20 13:18] LABS: ALANINE AMINOTRANSFERASE 11 U/L (0-55); BAND NEUTROPHILS 1 %; ERYTHROCYTE SEDIMENTATION RATE 37 MM/HR (0-30); LYMPHOCYTES % (MANUAL) 14 %; MONOCYTES % (MANUAL) 10 %; MYELOCYTES % 1 %; NEUTROPHILS % (MANUAL) 74 %; RBC MORPH NORMAL
--- NOTE | 2020-04-20 13:28 | NUR ---
Patient given ice water to drink.
[2020-04-20] MEDS ORDERED: LACTATED RINGERS 1,000 ML IV SCH (13:30)
--- NOTE | 2020-04-20 13:47 | Diagnostic Imaging Report ---
INDICATION: Weakness. Frontal chest obtained at 128 p.m. compared to 03/08/2020 Heart and mediastinal silhouette are normal in appearance. There is some hyperinflation compatible with COPD. There is no focal infiltrate. There is a questionable nodular density in the left midlung. This was not seen on previous chest CT of 03/22/2019. There is no pneumothorax or pleural fluid IMPRESSION: COPD changes with hyperinflation. No acute infiltrate. There is ill-defined nodular density overlying the left midlung, this was not seen on previous chest CT of 03/22/2019. Consider CT chest follow-up for further evaluation. Dictated by: Dictated on workstation # [id number]
[2020-04-20] MEDS ORDERED: NS IV 1000 ML 1,000 ML IV SCH (14:00)
[2020-04-20] MEDS ORDERED: HYDROcodone/APAP 5 MG/325 MG (LORTAB) TAB PO ONE (14:00)
[2020-04-20 14:13] LABS: BILIRUBIN,URINE NEGATIVE (NEGATIVE); CLARITY,URINE CLEAR; COLOR,URINE YELLOW; GLUCOSE, URINE (UA) NEGATIVE (NEGATIVE); KETONES,URINE NEGATIVE (NEGATIVE); LEUKOCYTE ESTERASE ,URINE NEGATIVE (NEGATIVE); NITRITE,URINE NEGATIVE (NEGATIVE); PH,URINE 5.5 (5-9); PROTEIN,URINE NEGATIVE (NEGATIVE)
[2020-04-20 14:31] LABS: BACTERIA,URINE NEGATIVE /HPF; WBC,URINE RARE /HPF
[2020-04-20 14:32] LABS: AMPHETAMINE SCREEN, URINE NEGATIVE (NEGATIVE); BARBITURATE SCREEN URINE NEGATIVE (NEGATIVE); BENZODIAZEPINES SCREEN URINE NEGATIVE (NEGATIVE); CANNABINOID SCREEN, URINE NEGATIVE (NEGATIVE); COCAINE SCREEN URINE NEGATIVE (NEGATIVE); METHADONE STAT NEGATIVE (NEGATIVE); METHAMPHETAMINE SCREEN URINE S NEGATIVE (NEGATIVE); OPIATE SCREEN URINE POSITIVE (NEGATIVE); OXYCODONE STAT NEGATIVE (NEGATIVE); PROPOXYPHENE STAT NEGATIVE (NEGATIVE); TRICYCLIC ANTIDEPRESSANTS SCRE NEGATIVE (NEGATIVE)
[2020-04-20] MEDS ORDERED: methylPREDNISolone 125 MG (Solu-MEDROL) VIAL IVP ONE (14:45)
[2020-04-20] MEDS ORDERED: KETAMINE/NaCl 50 MG/5 ML SYRINGE (ED ONLY) IV ONE (14:45)
[2020-04-20] MEDS ORDERED: cefTRIAXone FOR IV USE 1,000 MG in WATER (STERILE) FOR INJECTION 10 ML IV ONE (14:45)
[2020-04-20] MEDS ORDERED: NS 100 ML (IVPB) BAG IV ONE (15:00)
[2020-04-20] MEDS ORDERED: IOHEXOL 350 MG/ML 100 ML (OMNIPAQUE 350) VIAL IV ONE (15:00)
[2020-04-20] MEDS ORDERED: HOLD METFORMIN - RECEIVED CONTRAST 20 ML VIAL IV SCH (15:00)
--- NOTE | 2020-04-20 16:03 | Diagnostic Imaging Report ---
INDICATION: 30 pound weight loss and abdominal and back pain. TECHNIQUE: Multiple contiguous axial images were obtained through the chest, abdomen, and pelvis after the administration of intravenous contrast. Auto Exposure Controls were utilized during the CT exam to meet ALARA standards for radiation dose reduction. CT chest is compared to 03/22/2019. CT abdomen and pelvis has no previous study for comparison. CT chest findings: There are no enlarged mediastinal or hilar nodes. There are no enlarged axillary nodes or chest wall lesions. There is no pleural or pericardial fluid. Bony windows in the chest demonstrate an erosive lesion of the left 11th rib centrally, with bony destruction. There appear to be old bilateral rib fractures on both sides. There is a compression fracture with some underlying sclerosis at T5. Lung parenchymal windows demonstrate diffuse emphysematous changes. There are bilateral pulmonary nodules which were not present on the previous chest CT of 03/22/2019. There is a nodule in the right upper lobe, measuring 6 mm, best seen on image 11 of series 2. There are a couple small lesions in the right lung. There is a lesion in the left upper lobe, measuring 12 mm in diameter, best seen on image 26 series 2. There is an additional left upper lobe lesion on image 22 series 2, measuring about 9 mm. There is a smaller lesion in the left upper lobe more inferiorly. CT abdomen/pelvis findings: The liver shows no focal lesion. Gallbladder appears normal. The spleen and kidneys appear normal except for small cysts in the left kidney. The pancreas appears normal. The right adrenal appears normal. The left adrenal shows a mass measuring about 4.4 cm. This previously measured 3.8 cm on 03/16/2018. There is no retroperitoneal mass or adenopathy. There is no ascites or abnormal fluid collection. There is no pelvic mass or lymphadenopathy. There is no sign of bowel obstruction. There is inhomogeneity of the bony structures in the lumbar spine, raising the possibility of metastatic disease. There is a lytic lesion of L2 anteriorly with apparent pathologic fracture. Recommend MRI lumbar spine for further evaluation. There is also a compression fracture with some sclerosis at T5. IMPRESSION: 1. CT chest demonstrates emphysematous changes. There are multiple pulmonary nodules present which were not seen on prior study of 03/22/2019 and may represent neoplastic disease. There is a destructive bony lesion of the medial portion of the left 11th rib which may be metastatic. There is a T5 compression fracture with some sclerosis, which may represent a pathologic fracture, this was not present on 03/22/2019. Consider MRI thoracic spine for further evaluation. 2. CT abdomen and pelvis demonstrates a left adrenal mass which has increased in size compared to the prior study. This may represent metastatic disease or adenoma. There is an incidental cyst in the right kidney. There is diffuse inhomogeneity of the lumbar vertebrae with a suspicious pathologic compression fracture of L2. Recommend MRI for a more complete evaluation. Dictated by: Dictated on workstation # [id number]
[2020-04-20 16:18] VITALS: BP 161/104
== END 2020-04-20 16:18 | disposition home or self-care (01) ==
LOC: EDUNIT# 12:37 → ER 12:38
DX: C79.9 Secondary malignant neoplasm of unspecified site (principal); G50.0 Trigeminal neuralgia; I10 Essential (primary) hypertension; E78.00 Pure hypercholesterolemia, unspecified; J44.9 Chronic obstructive pulmonary disease, unspecified; F32.9 Major depressive disorder, single episode, unspecified; Z85.828 Personal history of other malignant neoplasm of skin; Z88.1 Allergy status to other antibiotic agents; Z79.82 Long term (current) use of aspirin
CPT/HCPCS: 71045; 71260; 74177; 80053; 80306; 81000; 83735; 84145; 84443; 85007; 85027; 85610; 85652; 86141; 99284; G0480; 36415; 80320